=== PATIENT | male | born 1960 | race Caucasian/White ===

== ENCOUNTER 2020-05-25 08:28 | Outpatient (CLI) | payer OTHER, SELFPAY ==
--- NOTE | ~2020-05-25 | XR_ITS ---
XR lumbar spine 2-3V DATE: 05/25/2020 08:56 INDICATION: Chronic low back pain. Surgery one year ago. TECHNIQUE: AP, lateral, coned lateral lumbosacral views COMPARISON: None FINDINGS: There is normal alignment of the lumbar spine. There is severe degenerative disease at T11-12. There is multi-level degenerative disc disease, most pronounced at L5-S1, moderate at the remaining L 2-3 through L4-5 interspaces. There is grade 1 anterolisthesis at L3-4. No fracture or bone destruction is evident. The lumbar and included lower thoracic pedicles are intac t. The sacroiliac joints are normal. IMPRESSION: Multilevel degenerative disc disease, most pronounced at T11-12 and L5-S1 Grade 1 anterolisthesis at L3-4 Reviewed, dictated and finalized at location A.
[2020-05-25 08:46] LABS: Hematocrit 45.3 % (40.0-54.0); Hemoglobin 14.5 g/dL (14.0-18.0); Mean Corpuscular Hemoglobin 29.4 pg (27.0-31.0); Mean Corpuscular Volume 91.9 fL (78.0-102.0); Mean Platelet Volume 9.8 fl (8.7-11.0); Platelet Count Result 198 K/mm3 (150-420); Red Blood Count 4.93 M/mm3 (4.70-6.10); Red Cell Distribution Width 12.6 % (11.6-14.4); White Blood Count 8.6 K/mm3 (4.8-10.8)
[2020-05-25 09:17] LABS: BNP < 5.0 pg/mL (0-100)
[2020-05-25 09:43] LABS: Alanine Aminotransferase 48 U/L (16-63); Albumin Level 4.2 g/dL (3.4-5.0); Alkaline Phosphatase 52 U/L (46-116); Anion Gap 10.6 mmol/L (7-16); Aspartate Amino Transferase 37 U/L (15-37); Bilirubin,Total 0.5 mg/dL (0.00-1.00); Blood Urea Nitrogen 14 mg/dL (7-18); Calcium 8.7 mg/dL (8.5-10.1); Carbon Dioxide 29 mmol/L (21-32); Chloride 102 mmol/L (98-108); Cholesterol 136 mg/dL (0-200); Estimated Glomerular Filt Rate > 60; Glucose 142 mg/dL (70-99); HDL Direct 28 mg/dL (40-60); LDL Cholesterol Calculated 51 mg/dL (<130); Magnesium 1.7 mg/dL (1.8-2.4); Osmolality Calculated 286 mOsm/kg (285-295); Potassium 4.6 mmol/L (3.5-5.1); Sodium 137 mmol/L (136-145); Total Protein 6.7 g/dL (6.4-8.2); Triglycerides 286 mg/dL (0-150)
[2020-05-26 07:38] LABS: Hemoglobin A1C 7.3 % (<5.7)
== END 2020-05-25 08:29 | disposition home or self-care (01) ==
PROVIDERS: PCP Family Medicine; Visit Provider Family Medicine
DX: I10 Essential (primary) hypertension (principal)
CPT/HCPCS: 36415; 72100; 80053; 80061; 83036; 83735; 83880; 85027

== ENCOUNTER 2020-05-30 09:41 | Outpatient (CLI) | payer OTHER, SELFPAY ==
--- NOTE | ~2020-05-30 | MR_ITS ---
EXAMINATION: MR lumbar spine wo con DATE: 05/30/2020 10:26 INDICATION: Low back pain. TECHNIQUE: Magnetic resonance imaging (MRI) of the lumbar spine was performed without intravenous con trast. Sequences included sagittal T2-weighted FSE, sagittal T2-weighted FS FSE, sagittal T1-weighted FSE, and axial T2-weighted FSE. COMPARISON: Lumbar spine MRI 06/17/2017 FINDINGS: There is 3 mm anterolisthesis of L2 on L3, L3 on L4, and L4 on L5. Vertebral body heights a re normal. There is moderately decreased disc height from L2-L3 through L4-L5 and severely decreased disc height at L5-S1. The distal spinal cord signal intensity is normal. The conus medullaris is at L 1. The following disc levels are specifically discussed: L1-L2: The disc does not extend beyond the endplate margin. There is no facet joint osteoarthritis. T here is no neural foraminal stenosis. There is no central canal stenosis. L2-L3: The disc is bulging. There is severe bilateral facet joint osteoarthritis. There is mild bilat eral neural foraminal stenosis. There is mild central canal stenosis. L3-L4: The disc is bulging. There is severe bilateral facet joint osteoarthritis. There is moderate b ilateral neural foraminal stenosis. There is moderate central canal stenosis. L4-L5: The disc is bulging. There is severe bilateral facet joint osteoarthritis. There is moderate b ilateral neural foraminal stenosis. There is mild central canal stenosis. L5-S1: The disc is bulging and has an annular fissure. There is severe bilateral facet joint osteoart hritis. There is moderate bilateral neural foraminal stenosis. There is mild central canal stenosis. IMPRESSION: 1. Severe lumbar spondylosis, worsened from 06/17/2017. Reviewed, dictated and finalized at location A.
== END 2020-05-30 09:42 | disposition home or self-care (01) ==
LOC: CHSIMG 09:43
PROVIDERS: PCP Family Medicine; Visit Provider Family Medicine
DX: M54.5 Low back pain (principal)
CPT/HCPCS: 72148

== ENCOUNTER 2020-06-01 15:26 | Outpatient (RCR) | payer OTHER, SELFPAY ==
--- NOTE | 2020-06-01 16:27 | PTOPEVAL ---
Thank you for referring Jamison Orona to [facility]. Please review, sign, date and return this plan of care ABEBE. I agree with and certify that the following plan of care is medically necessary. Referring Physician Date Admitting Provider: Attending Provider: Goyo Ha DO Referring Provider: *PT Outpatient Evaluation Start: 06/01/20 15:44 Freq: Status: Active Protocol: Document 06/01/20 15:44 SHARAN (Rec: 06/01/20 16:20 SHARAN [id number]) Therapy Assessment Status Assessment Status Assessment Status Evaluation Evaluation Information Problem Diagnosis low back pain Onset 04/01/20 Additional Evaluation Detail Oswestry=44% disabiltiy Subjective Information Pt. reports that he has long Query Text:As Reported By Patient/ standing hx of back pain. He Family had recent MRI that revealed severe arthritis in the back. He reports he has constant tightness in the back. He reports that he cannot feel the left leg at all and states that the left l.e. gives often. He reports having pain in the right l.e. as well. 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 He states that the left toes with curl with activity. He reports that his balance is getting worse and recalls recent falls due to the legs giving out. He reports that his goal is Diagnostic Tests X-Rays For This Problem Yes MRI For This Problem Yes Pain Assessment Pain Scale Pain Scale Used Numeric (1 - 10) Self Report Pain Assessment Lower Back Reported Pain Level 5 Lowest Pain Intensity 5 Greatest Pain Intensity 8 Pain Score Pain Score 5: Self Report Cervical and Lumbar ROM Lumbar ROM Lumbar Flexion Active Ankle Query Text:Hands to: Lumbar Extension (0-40) 10 Query Text:Active in Degrees Cervical and Lumbar Muscle Testing Lumbar Strength Upper Abdominal Strength 4-Good- Lower Abdominal Strength 3-Fair- Lower Back Extension 2+Poor+ Lower Extremity Muscle Strength Testing General Lower Extremity Strength Gross Lower Extremity Stre
== END 2020-06-29 09:44 | disposition home or self-care (01) ==
LOC: CHSPT 15:26
PROVIDERS: PCP Family Medicine; Visit Provider Family Medicine
DX: M54.5 Low back pain (principal)
CPT/HCPCS: 97014; 97110; 97161; G0283

== ENCOUNTER 2021-01-03 12:12 | Emergency (ER) | payer OTHER, SELFPAY ==
[2021-01-03 12:28] VITALS: BP 167/91; PULSE 75; RESP 20; TEMP 36.4; O2SAT 95
[2021-01-03] MEDS: PENICILLIN G BENZATHINE 1,200,000 UNITS/2 ML SYRINGE 1200000 UNITS IM (12:41)
--- NOTE | 2021-01-03 12:52 | ED.DENTAL ---
HPI - Dental/Oral General Chief complaint: Dental/Oral Stated complaint: tooth pain Time Seen by Provider: 01/03/21 12:35 Source: patient Mode of arrival: ambulatory Limitations: no limitations History of Present Illness HPI Narrative: Patient states he got a part of a popcorn kernel stuck under his gum, and the gum and surrounding area, where it went in by the tooth have been really tender. This happened a few days ago. He comes in because tooth number 22 appears to have an abscess around it, and says it is very tender to touch. It has also made that part of his face swollen. He comes in because this has seemed to be getting worse at home. Pain is moderately severe, dull, ongoing, not relieved by him caring for the tooth at home. Onset (ago): day(s) Duration: constant Severity: moderate Relieving factors: nothing Related Data Home Medications Medication Instructions Recorded Confirmed losartan 50 mg PO DAILY 01/03/21 01/03/21 omeprazole 20 mg PO DAILY 01/03/21 01/03/21 rosuvastatin 20 mg PO DAILY 01/03/21 01/03/21 Allergies Allergy/AdvReac Type Severity Reaction Status Date / Time temazepam [Restoril] Allergy Intermediate Sleepiness Verified 03/02/20 13:06 Hydrocodone/Acetaminophen Allergy Intermediate Uncoded 03/02/20 13:06 Review of Systems Constitutional: Constitutional: Reports no additional constitutional complaints Eyes: Eyes: Reports no additional eye complaints ENT: Reports system reviewed and no additional complaints, except as documented Cardiovascular: Cardiovascular: Reports no additional cardiovascular complaints Respiratory: Respiratory: Reports no additional respiratory complaints Gastrointestinal: Gastrointestinal: Reports no additional gastrointestinal complaints Genitourinary: Genitourinary: Reports no additional male genitourinary complaints Musculoskeletal: Musculoskeletal: Reports no additional musculoskeletal complaints Integumentary/Breasts: Skin/Breast: Reports system reviewed and no additional complaints, except as docu Neurologic: Reports system reviewed and no additional complaints, except as documented Psychiatric: Psychiatric: Reports no additional psychiatric complaints Endocrine: Endocrine: Reports no additional endocrine complaints Hematologic/Lymphatic: Hematologic/Lymphatic: Reports no additional hematologic/lymphatic complaints Allergic/Immunologic: Allergic/Immunologic: Reports no additional allergic/immunologic complaints PMFSH Past Medical History Medical History GERD (gastroesophageal reflux disease) Hyperlipidemia Hypertension CHADD (obstructive sleep apnea) Overweight Surgical History Surgical History History of back surgery Hx of cataract surgery Social History Social History (Updated 01/03/21 @ 14:14 by Sterling Dias MD) Smoking status: Never smoker Alcohol use details: minimal alcohol use, social Gender identity (if verbalized by the patient): Male Exam Const: General: no acute distress Orientation/consciousness: patient oriented x3 HENMT: Head: normal to inspection (lower jaw on lower left with some mild sweling) General nose exam: Normal external nose present Throat: posterior oropharynx normal Other: Tooth #22 appears to be abscessed. The area of gum around this is also inflamed. Eyes: Conjunctivae: conjunctivae normal Neck: Neck: normal visual inspection Chest: Chest palpation & inspection: normal inspection of the chest Resp: Effort & Inspection: normal respiratory effort Auscultation: clear to auscultation bilaterally Cardio: Rate: regular rate Rhythm: regular rhythm GI: Auscultation: normal bowel sounds Skin: General skin exam: normal color Neuro: General: patient oriented x3 and moves all extremities Extrem: General: normal to inspection Psych: Appearance: grossly normal Mental Status: mental sta
[2021-01-03 12:58] VITALS: BP 176/87; PULSE 70; RESP 20; TEMP 36.7; O2SAT 95
== END 2021-01-03 13:05 | disposition home or self-care (01) ==
PROVIDERS: Emergency Provider Emergency Medicine; PCP Family Medicine
DX: K04.7 Periapical abscess without sinus (principal)
CPT/HCPCS: 96372; 99283; J0561

== ENCOUNTER 2021-12-18 17:27 | Emergency (ER) | payer OTHER, SELFPAY ==
--- NOTE | ~2021-12-18 | XR_ITS ---
EXAMINATION: XR ankle RT 2V EXAM DATE: 12/18/2021 18:03 INDICATION: Painful ankle. Gout? TECHNIQUE: Frontal and lateral projections of the right ankle. There is no prior study for comparis on. FINDINGS: No right talar osteochondral defect or appreciable osteoarthritis. There is evidence of pr ior malleoli avulsion injuries. There is swelling mostly over the medial aspect of the ankle, nonspec ific. No findings specific for gout. There are no acute fractures identified. No radiopaque foreign b odies identified. IMPRESSION: 1. Evidence of prior malleolar avulsion injuries. 2. Soft tissue swelling. Reviewed, dictated and finalized at location G. CUTTER
[2021-12-18 17:46] VITALS: BP 189/98; PULSE 88; RESP 20; TEMP 36.6; O2SAT 96
--- NOTE | 2021-12-18 17:50 | ED.LOWEXIN ---
HPI - Extremity Injury (Lower) General Chief Complaint: Extremity Injury, Lower Stated Complaint: right ankle twisted/pain Time Seen by Provider: 12/18/21 17:50 Source: patient Mode of arrival: ambulatory Limitations: no limitations History of Present Illness HPI Narrative: this is a 71-year-old male with history of hyperlipidemia and hypertension, with a remote history of gout presents with a red swollen tender right medial ankle, patient did mention that he twisted his ankle approximately 4 days ago, and started having this warm swollen and tender right ankle. Otherwise there is no chest pain no shortness of breath no fever chills. complaint: ankle injury Onset (ago): day(s) Injury: Right: ankle ( red warm and tender) Type of Injury: inversion Place: home Severity: moderate Severity scale (1-10): 6 Relieving factors: nothing Exacerbating factors: nothing Related Data Allergies Allergy/AdvReac Type Severity Reaction Status Date / Time temazepam [Restoril] Allergy Intermediate Sleepiness Verified 03/02/20 13:06 Hydrocodone/Acetaminophen Allergy Intermediate Uncoded 03/02/20 13:06 Review of Systems Review of Systems: All systems reviewed & are unremarkable except as noted in HPI and below PMFSH Past Medical History Medical History (Updated 12/18/21 @ 17:54 by Sandoval Valladares MD) GERD (gastroesophageal reflux disease) Hyperlipidemia Hypertension CHADD (obstructive sleep apnea) Overweight Surgical History Surgical History History of back surgery Hx of cataract surgery Social History Social History Smoking status: Never smoker Alcohol use details: minimal alcohol use, social Gender identity (if verbalized by the patient): Male Exam Const: General: no acute distress Orientation/consciousness: patient oriented x3 HENMT: Head: normal to inspection and contusion Eyes: Conjunctivae: conjunctivae normal Pupils: Equal, round and reactive pupils present Neck: Neck: normal visual inspection, no lymphadenopathy and no meningeal signs Chest: Chest palpation & inspection: normal inspection of the chest Resp: Effort & Inspection: normal respiratory effort Auscultation: clear to auscultation bilaterally Cardio: Rate: regular rate Rhythm: regular rhythm GI: GI Palp: Yes Soft to palpation Back/Spine/Pelvis: Back: no CVA tenderness Skin: Other: Warm swollen and tender right ankle Extrem: Other: warm swollen tender right ankle Psych: Mental Status: mental status grossly normal Affect: normal affect Course Course Emergency Course: patient received Toradol IM 60mg, x-ray was performed reviewed with patient. Critical Care Time Critical Care Time Critical Care Time: No Discharge Plan Discharge Clinical Impression: Gout attack Qualifiers: Gout site: ankle Gout etiology: unspecified cause Laterality: right Qualified Code(s): M10.9 - Gout, unspecified Patient Disposition: Home, Self-Care Condition: Stable Instructions: Antibiotic Form, Gout (ED) Additional Instructions: Take medicine as prescribed and follow-up with primary care physician symptoms persist or worsen. Prescriptions: New indomethacin 50 mg capsule 50 mg PO TID Qty: 20 RF: 0 No Action losartan 50 mg tablet See Rx Instructions .ROUTE .COMPLEX Qty: 90 RF: 2 rosuvastatin 20 mg tablet See Rx Instructions .ROUTE .COMPLEX Qty: 90 RF: 2 amoxicillin 500 mg capsule 500 mg PO Q6H Qty: 40 RF: 0 omeprazole 20 mg capsule,delayed release(DR/EC) See Rx Instructions .ROUTE .COMPLEX Qty: 30 RF: 0 Follow-up/Referrals: Goyo Ha DO [Primary Care Provider] - Time of Disposition: 18:27
[2021-12-18] MEDS: KETOROLAC (*BKC) 60 MG/2 ML VIAL IM (17:58)
[2021-12-18 18:42] VITALS: BP 176/100; PULSE 86; RESP 20; TEMP 36.7; O2SAT 96
== END 2021-12-18 18:40 | disposition home or self-care (01) ==
PROVIDERS: Emergency Provider Emergency Medicine; PCP Family Medicine
DX: M10.9 Gout, unspecified (principal)
CPT/HCPCS: 73600; 96372; 99283; J1885

== ENCOUNTER 2022-01-25 07:43 | Outpatient (RCR) | payer OTHER, SELFPAY ==
--- NOTE | 2022-01-25 07:59 | PTOPEVAL ---
Thank you for referring Jamison Orona to [facility].? The patient is scheduled to be seen for therapy? ____x/week for ___ weeks. Please review, sign, date and return this plan of care ABEBE. I agree with and certify that the following plan of care is medically necessary. Referring Physician Date Admitting Provider: Attending Provider: SORAIDA BUENROSTRO Referring Provider: *PT Outpatient Evaluation Start: 01/25/22 07:03 Freq: Status: Active Protocol: Document 01/25/22 07:00 Cecy (Rec: 01/25/22 07:54 [id number] Therapy Assessment Status Assessment Status Assessment Status Evaluation Outpatient Past Medical History Cardiovascular History Hx Hypercholesterolemia Yes Hx Hypertension Yes Gastrointestinal History Hx Gastroesophageal Reflux Disease Yes Musculoskeletal History Hx Gout Yes Endocrine History Hx Diabetes Yes: A1C 6 Evaluation Information Problem Diagnosis lumbar spondylolysis Onset 01/07/22 Additional Evaluation Detail oswestry = 70% functionally declined Subjective Information patient reports he went to see Query Text:As Reported By Patient/ his primary care who reffered Family him to pain [facility]. he reports he has gone through pain management several times already. he reports he has tried PT in the past. he reports he did get worse last time with therapy. he reports his new med seems to take the edge off his pain a bit. he reports he has constatnt cramping in the legs, pain in the back and legs. he reports he is loosing strength and mm tone in the L greater than the R LE. he reports he had a shot in the back last monday. he reports he has worsening symptoms with standing, lifting, transfers, standing for more than 30 minutes. he reports he is unable to get into a comfortable position in any position. patient reports pain in the feet at all times. 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
--- NOTE | 2022-02-22 07:56 | PTOPEVAL ---
Thank you for referring Jamison Orona to [facility].? The patient is scheduled to be seen for therapy? ____x/week for ___ weeks. Please review, sign, date and return this plan of care ABEBE. I agree with and certify that the following plan of care is medically necessary. Referring Physician Date Admitting Provider: Attending Provider: SORAIDA AWAD Referring Provider: STEPHANIE Outpatient Evaluation Start: 01/25/22 07:03 Freq: Status: Active Protocol: Document 02/22/22 07:01 [facility] (Rec: 02/22/22 07:55 [facility] [id number]) Outpatient Past Medical History Cardiovascular History Hx Hypercholesterolemia Yes Hx Hypertension Yes Gastrointestinal History Hx Gastroesophageal Reflux Disease Yes Musculoskeletal History Hx Gout Yes Endocrine History Hx Diabetes Yes: A1C 6 Evaluation Information Problem Diagnosis lumbar spondylolysis Onset 01/07/22 Additional Evaluation Detail oswestry = 44% functionally declined Subjective Information patient reports he feels Query Text:As Reported By Patient/ Alright this date. he reports Family continued baseline pain a 5-6 /10, and bouts up to a 9/10. however, he reports since beginning his new meds this has stayed much lower and his tingling and burning is less in the bilateral LE's. Pain Assessment Timing of Pain Assessment Timing of Pain Assessment Assessment Pain Scale Pain Scale Used Numeric (1 - 10) Self Report Pain Assessment Lower Back Reported Pain Level 6 Greatest Pain Intensity 9 Pain Score Pain Score 6: Self Report Interventions Used Interventions Used By Clinicians Activity or ADL's,Education, Exercise,Heat,Medication,Rest Cervical and Lumbar ROM Lumbar ROM Lumbar Flexion Active Mid Awad,Ankle Query Text:Hands to: Lumbar Extension (0-40) 20 Query Text:Active in Degrees Lumbar Lateral Flexion Right (0-40) 30 Query Text:Active in Degrees Lumbar Lateral Flexion Left (0-40) 30 Query Text:Active in Degrees Lumbar Comments increased pain with arom lumbar mobility to all ends. gowers sign with returning to standing from forward flexion. Lower Extremity Muscle Strength Testing Hip Strength Left Hip Flexion Strength 4+ Good + Hip Extension Strength 4 Good Hip Abduction Strength 4+ Good + Right Hip Flexion Str
== END 2022-02-22 17:00 | disposition home or self-care (01) ==
LOC: CHSPT 07:43
DX: M43.06 Spondylolysis, lumbar region (principal)
CPT/HCPCS: 97014; 97110; 97140; 97162; 97530; G0283

== ENCOUNTER 2022-03-23 12:34 | Outpatient (CLI) | payer OTHER, SELFPAY ==
--- NOTE | ~2022-03-23 | XR_ITS ---
XR knee RT 3V DATE: 03/23/2022 13:14 INDICATION: Polyarthritis. Right knee pain. TECHNIQUE: 3 views COMPARISON: None FINDINGS: There is mild periarticular spurring of the patella consistent with osteoarthritis. Medial and lateral compartments joint spaces appear relatively well preserved. No fracture or dislocation or joint effusion. No periosteal reaction or bone destruction. No radiopaq ue intra-articular loose body or chondral calcinosis. IMPRESSION: Mild patellofemoral osteoarthritis Reviewed, dictated and finalized at location B.
--- NOTE | ~2022-03-23 | XR_ITS ---
XR knee LT 3V DATE: 03/23/2022 13:14 INDICATION: Left knee pain TECHNIQUE: 3 views COMPARISON: 03/09/2007 left knee FINDINGS: There is particular spurring at the patellofemoral joint consistent with osteoarthritis. Medial and lateral compartment joint spaces are well preserved. There is minimal periarticular spurri ng at the lateral compartment. No radiopaque interarticular loose body or chondrocalcinosis is eviden t. No fracture or dislocation or joint effusion. No periosteal reaction or bone destruction. IMPRESSION: Mild osteoarthritis Reviewed, dictated and finalized at location B. IMPRESSION: Mild osteoarthritis
--- NOTE | ~2022-03-23 | XR_ITS ---
XR hip BI 2V w AP pelvis DATE: 03/23/2022 13:14 INDICATION: Bilateral hip pain TECHNIQUE: AP pelvis. AP and lateral views of each hip. COMPARISON: None FINDINGS: Degenerative disc disease at L5-S1. The pubic symphysis and sacroiliac joints are intact. No fracture or bone destruction of the pelvis. Mild bilateral hip osteoarthritis. No fracture, dislocation, avascular necrosis or bone destruction o f either hip is evident. IMPRESSION: Mild bilateral hip osteoid arthritis Degenerative disc disease at L5-S1 Reviewed, dictated and finalized at location B.
== END 2022-03-23 12:35 | disposition home or self-care (01) ==
LOC: CHSIMG 12:39
PROVIDERS: PCP Family Medicine; Visit Provider Family Medicine
DX: M13.0 Polyarthritis, unspecified (principal)
CPT/HCPCS: 73521; 73562

== ENCOUNTER 2022-11-02 07:22 | Outpatient (CLI) | payer OTHER, SELFPAY ==
[2022-11-02 07:36] LABS: Hematocrit 42.2 % (40.0-54.0); Hemoglobin 14.6 g/dL (14.0-18.0); Mean Corpuscular HGB Conc 34.6 g/dL (32.0-36.0); Mean Corpuscular Hemoglobin 30.5 pg (27.0-31.0); Mean Corpuscular Volume 88.1 fL (78.0-102.0); Mean Platelet Volume 9.7 fl (8.7-11.0); Platelet Count Result 245 K/mm3 (150-420); Red Blood Count 4.79 M/mm3 (4.70-6.10); Red Cell Distribution Width 12.5 % (11.6-14.4); White Blood Count 8.7 K/mm3 (4.8-10.8)
[2022-11-02 07:45] LABS: Hemoglobin A1C 7.4 % (<5.7)
[2022-11-02 08:22] LABS: Albumin Level 4.1 g/dL (3.4-5.0); Alkaline Phosphatase 71 U/L (46-116); Anion Gap 8 mmol/L (8-16); Aspartate Amino Transferase 43 U/L (15-37); Bilirubin,Total 0.3 mg/dL (0.00-1.00); Blood Urea Nitrogen 17 mg/dL (7-18); Calcium 8.7 mg/dL (8.5-10.1); Carbon Dioxide 28 mmol/L (21-32); Chloride 101 mmol/L (98-108); Cholesterol 205 mg/dL (0-200); Estimated Glomerular Filt Rate > 60; Glucose 144 mg/dL (70-99); HDL Direct 24 mg/dL (40-60); Osmolality Calculated 288 mOsm/kg (285-295); Potassium 4.6 mmol/L (3.5-5.1); Prostate Specific Antigen 1.9 ng/mL (< OR = 4.0); Sodium 137 mmol/L (136-145)
[2022-11-02 08:48] LABS: LDL Cholesterol Calculated 7 mg/dL (<130); Triglycerides 870 mg/dL (0-150)
[2022-11-02 08:49] LABS: Alanine Aminotransferase 49 U/L (16-63); LDL Cholesterol Direct 104 mg/dL (0-130)
== END 2022-11-02 07:23 | disposition home or self-care (01) ==
LOC: CHSLAB 07:26
PROVIDERS: PCP Family Medicine; Visit Provider Family Medicine
DX: E11.9 Type 2 diabetes mellitus without complications (principal); R35.1 Nocturia; E78.5 Hyperlipidemia, unspecified; I10 Essential (primary) hypertension
CPT/HCPCS: 36415; 80053; 80061; 83036; 83721; 84153; 84443; 85027; G0103

== ENCOUNTER 2022-11-03 07:10 | Outpatient (CLI) | payer OTHER, SELFPAY ==
--- NOTE | ~2022-11-03 | US_ITS ---
EXAMINATION: US retroperitoneal limited DATE: 11/03/2022 08:07 INDICATION: Nocturia Comparison:No prior studies for comparison. TECHNIQUE: Multiple transabdominal sonographic images of the pelvis performed. FINDINGS: The bladder wall is within normal limits without significant thickening or focal mass. Post void volume in the bladder is 346 cc. Prostate volume is 44 cc. Prostate measures 4.6 x 4.5 x 4.1 cm . IMPRESSION: 1. Large post void residual measuring 346 cc.. Reviewed, dictated and finalized at location A. 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
== END 2022-11-03 07:11 | disposition home or self-care (01) ==
LOC: CHSIMG 07:13
PROVIDERS: PCP Family Medicine; Visit Provider Family Medicine
DX: R35.1 Nocturia (principal)
CPT/HCPCS: 76775

== ENCOUNTER 2022-11-26 07:18 | Outpatient (CLI) | payer OTHER, SELFPAY ==
--- NOTE | ~2022-11-26 | MR_ITS ---
MRI of the brain and internal auditory canals Clinical History: Dizziness Technique: Axial and sagittal T1-weighted images were acquired. These were followed by axial T2-weigh yong, diffusion weighted, gradient, and FLAIR images. Thin cut coronal T1-weighted images and thin cut axial and coronal T2-weighted images were performed through the internal auditory canals. Findings: No acute infarct, intracranial hemorrhage, or mass lesion identified. Mild chronic white ma tter changes are noted in the periventricular white matter bilaterally. Ventricles and subarachnoid spaces are unremarkable. Orbits are unremarkable. Paranasal sinuses and m astoid air cells are clear. Major intracranial flow voids appear intact. Sagittal midline structures are intact. No abnormal mass lesion seen at the internal auditory canals or cerebellopontine angle regions. IMPRESSION: No abnormality seen at the internal auditory canals or cerebellopontine angle regions. Consider postc ontrast examination to better evaluate for small acoustic neuroma or other mass lesion. Mild chronic white matter changes, as noted above. Reviewed, dictated and finalized at location M. ULAR TANK COOPER IMPRESSION: No abnormality seen at the internal auditory canals or cerebellopontine angle r egions. Consider postcontrast examination to better evaluate for small acoustic neuroma or other mass lesion. Mild chronic white matter changes, as noted above.
== END 2022-11-26 07:19 | disposition home or self-care (01) ==
LOC: CHSIMG 07:18
PROVIDERS: PCP Family Medicine; Visit Provider Family Medicine
DX: R42 Dizziness and giddiness (principal)
CPT/HCPCS: 70551

== ENCOUNTER 2023-02-18 07:19 | Outpatient (CLI) | payer OTHER, SELFPAY ==
--- NOTE | ~2023-02-18 | MR_ITS ---
MRI of the lumbar spine Clinical History: Back pain Technique: Axial T2-weighted images, and sagittal T1-weighted, T2-weighted, and T2 fat-sat images wer e acquired. Following intravenous administration of 10 cc MultiHance gadolinium, T1-weighted fat-sat imaging was performed in the axial and sagittal planes. COMPARISON: 05/30/2020 Findings: No fracture identified. Minimal grade 1 anterolisthesis of L3 over L4 noted. No suspicious bone marrow signal abnormality seen. At L1-L2, there is no disc bulge or herniation. No spinal canal stenosis or neural foraminal narrowin g. At L2-L3, there is degenerative disc disease. Disc bulge and facet arthropathy result in severe theca l sac compression/spinal canal stenosis. There is moderate bilateral neural foraminal narrowing. At L3-L4, disc bulge and facet arthropathy result in severe spinal canal stenosis/thecal sac compress ion. There is moderate right neural foraminal narrowing and mild left neural foraminal narrowing. At L4-L5, disc bulge and facet arthropathy result in minimal central canal stenosis. There is mild to moderate bilateral neural foraminal narrowing. At L5-S1, there is diffuse disc bulge with facet arthropathy. There is bilateral lateral recess steno sis, right worse than left. There is severe bilateral neural foraminal narrowing. Paravertebral soft tissues are unremarkable. No suspicious postcontrast enhancement identified. Impression: Severe degenerative spondylosis at L2-L3 and L3-L4, as detailed above, with severe thecal sac leland ceferino and bilateral neural foraminal narrowing. Severe bilateral neural foraminal narrowing and lateral recess stenosis bilaterally at L5-S1, as deta iled above. Additional degenerative changes, as above. Reviewed, dictated and finalized at [facility] M. Impression: Severe degenerative spondylosis at L2-L3 and L3-L4, as detailed above, with sev ere thecal sac compression and bilateral neural foraminal narrowing. Severe bilateral neural foraminal narrowing and lateral recess stenosis bilater ally at L5-S1, as detailed above. Additional degenerative changes, as above.
[2023-02-18 07:41] LABS: Estimated Glomerular Filt Rate > 60
== END 2023-02-18 07:20 | disposition home or self-care (01) ==
LOC: CHSIMG 07:20
PROVIDERS: PCP Family Medicine; Visit Provider Neurological Surgery
DX: M48.061 Spinal stenosis, lumbar region without neurogenic claudication (principal); M43.06 Spondylolysis, lumbar region
CPT/HCPCS: 72158; A9577

== ENCOUNTER 2023-02-20 07:30 | Outpatient (CLI) | payer OTHER, SELFPAY ==
--- NOTE | ~2023-02-20 | CT_ITS ---
EXAMINATION: CT lumbar spine wo con DATE: 02/20/2023 08:06 INDICATION: Chronic low back pain. TECHNIQUE: Computed tomography (CT) of the lumbar spine was performed without intravenous contrast. A utomated exposure control and iterative reconstruction technique were employed. The dose-length produ ct was 1329.96 mGy-cm. COMPARISON: Lumbar spine MRI 02/18/2023 FINDINGS: There is 3 mm anterolisthesis of L3 on L4. There is mild chronic anterior wedging of T11 an d T12 vertebral bodies. There is severely decreased disc height at T10-T11, T11-T12, and L2-L3, moder ately decreased disc height at L3-L4 and L4-L5, and severely decreased disc height at L5-S1 with endp late remodeling. The following disc levels are specifically discussed: T11-T12: The disc is bulging. There is severe bilateral facet joint osteoarthritis. There is mild aidan ateral neural foraminal stenosis. There is mild central canal stenosis. T12-L1: The disc does not extend beyond the endplate margin. There is mild bilateral facet joint oste oarthritis. There is no neural foraminal stenosis. There is no central canal stenosis. L1-L2: The disc does not extend beyond the endplate margin. There is mild bilateral facet joint osteo arthritis. There is no neural foraminal stenosis. There is no central canal stenosis. L2-L3: The disc is bulging. There is severe bilateral facet joint osteoarthritis. There is moderate b ilateral neural foraminal stenosis. There is mild central canal stenosis. L3-L4: The disc is bulging. There is severe bilateral facet joint osteoarthritis. There is moderate b ilateral neural foraminal stenosis. There is moderate central canal stenosis. L4-L5: The disc is bulging. There is severe bilateral facet joint osteoarthritis. There is moderate b ilateral neural foraminal stenosis. There is mild central canal stenosis. L5-S1: The disc is bulging. There is severe bilateral facet joint osteoarthritis. There is severe rig ht and moderate left neural foraminal stenosis. There is mild central canal stenosis. IMPRESSION: 1. Severe lumbar spondylosis. Reviewed, dictated and finalized at location A.
--- NOTE | ~2023-02-20 | XR_ITS ---
XR lumbar spine min 4V 02/20/2023 08:02 Indication: Chronic low back pain with pain extending to the lower extremities Procedure: 4 views of the lumbar spine Comparison: 05/27/2015 Findings: There is chronic disc narrowing at L2-3 through L5-S1 with progression at L4-5. Vertebral b rosemary heights are maintained. There is levoscoliosis. There is grade 1 degenerative spondylolisthesis a t L3-4 and L4-5. There is multilevel facet hypertrophy. No significant alteration of alignment with f lexion and extension. There is atherosclerosis. Sacral foramen are symmetric. Impression: 1: Severe lumbar spondylosis with progression since prior examination. Reviewed, dictated and finalized at location B. Impression: 1: Severe lumbar spondylosis with progression since prior examination.
== END 2023-02-20 07:31 | disposition home or self-care (01) ==
PROVIDERS: PCP Family Medicine; Visit Provider Neurological Surgery
DX: M48.061 Spinal stenosis, lumbar region without neurogenic claudication (principal); M43.06 Spondylolysis, lumbar region
CPT/HCPCS: 72110; 72131

== ENCOUNTER 2023-07-07 06:10 | Outpatient (CLI) | payer OTHER, SELFPAY ==
[2023-07-07 06:38] LABS: Hematocrit 45.7 % (40.0-54.0); Hemoglobin 15.3 g/dL (14.0-18.0); Mean Corpuscular HGB Conc 33.5 g/dL (32.0-36.0); Mean Corpuscular Hemoglobin 29.4 pg (27.0-31.0); Mean Corpuscular Volume 87.7 fL (78.0-102.0); Mean Platelet Volume 9.8 fl (8.7-11.0); Platelet Count Result 233 K/mm3 (150-420); Red Blood Count 5.21 M/mm3 (4.70-6.10); Red Cell Distribution Width 12.6 % (11.6-14.4); White Blood Count 8.1 K/mm3 (4.8-10.8)
[2023-07-07 06:43] LABS: Appearance Urine Clear (Clear); Bilirubin Urine Negative (Negative); Blood Urine Negative (Negative); Color Urine Light Yellow (Yellow); Glucose Urine UA 3+ (Negative); Ketones Urine Negative (Negative); Leukocyte Esterase Ur Negative LEU/UL (Negative); Nitrate Urine Negative (Negative); Protein Urine Negative (Negative); Urobilinogen Urine 0.2 mg/dL (0.2-1.0)
[2023-07-07 06:46] LABS: Hemoglobin A1C 6.7 % (<5.7)
[2023-07-07 06:47] LABS: Add Urine Microscopic? YES; Bacteria Urine None seen /hpf; RBC Urine None seen /hpf (0-2); WBC Urine None seen /hpf (0-3)
[2023-07-07 06:54] LABS: Partial Thromboplastin Time 32.5 SEC (23.90-30.70); Prothrombin Time 10.9 Seconds (9.50-12.10)
[2023-07-07 07:09] LABS: Anion Gap 8 mmol/L (8-16); Blood Urea Nitrogen 16 mg/dL (7-18); Calcium 9.2 mg/dL (8.5-10.1); Carbon Dioxide 27 mmol/L (21-32); Chloride 103 mmol/L (98-108); Estimated Glomerular Filt Rate > 60; Glucose 122 mg/dL (70-99); Osmolality Calculated 288 mOsm/kg (285-295); Potassium 4.3 mmol/L (3.5-5.1); Sodium 138 mmol/L (136-145)
--- NOTE | 2023-07-07 07:11 | ECG_ITS ---
Measurements Intervals Rankin Rate: 66 P: 36 MT: 196 QRS: 19 QRSD: 117 T: 20 QT: 400 QTc: 420 Interpretive Statements SINUS RHYTHM INCOMPLETE RIGHT BUNDLE BRANCH BLOCK [90+ ms QRS DURATION, TERMINAL R IN V1/V2, 40+ ms S IN I/aVL/V4/V5/V6] BORDERLINE ECG NO PREVIOUS ECG AVAILABLE FOR COMPARISON Electronically Signed On 07-07-2023 14:36:56 CDT by Sandoval Blackmon M.D.
== END 2023-07-07 06:11 | disposition home or self-care (01) ==
LOC: CHSLAB 06:13
PROVIDERS: PCP Family Medicine; Visit Provider Neurological Surgery
DX: Z01.818 Encounter for other preprocedural examination (principal); I10 Essential (primary) hypertension; E11.9 Type 2 diabetes mellitus without complications; M48.061 Spinal stenosis, lumbar region without neurogenic claudication; I45.19 Other right bundle-branch block
CPT/HCPCS: 36415; 80048; 81001; 83036; 85027; 85610; 85730; 93005

== ENCOUNTER 2023-07-11 02:01 | Day surgery (SDC) | payer OTHER, SELFPAY ==
[2023-07-06 14:34] VITALS: BMI 35.5
--- NOTE | 2023-07-06 14:42 | PC.NURSE ---
Report to the Outpatient Waiting Room, entrance under the green pavilion located off [facility], at time 0930 on date 07/11/23. Planned Procedure Time: 1130. Time changes happen often and if your time is changed the preop area will call you the afternoon before. - You and your visitor will be asked to self-screen and do not enter if you have any COVID symptoms. - A mask is optional within the hospital at this time. Patients may have clear liquids (water, carbonated beverages, clear teas, apple juice) until 3 hours prior to surgery with a maximum of 20 ounces. - No food from midnight until time of surgery Take the following medications with a SIP of water the morning of surgery: PREGABALIN DO NOT STOP ANY OF YOUR OTHER PRESCRIPTION MEDICATIONS PRIOR TO SURGERY ?EXCEPT THE FOLLOWING Medications to discontinue per physician: IBUPROFEN Date to take last dose: NO MORE UNTIL AFTER SURGERY Please no make-up, nail upper sorbian, hairspray, perfume, deodorant, or body powder the day of surgery. No jewelry (including any body piercings) or valuables the day of surgery, leave them at home. Please take a shower or bath the night before, or the morning of, surgery with an antibacterial soap. Wear comfortable, loose fitting clothing. - Jewelry must be removed prior to entering the operating room. Rings and piercings that are not removed may be cut off. - The hospital will not accept responsibility for valuables. - Please leave all valuables, including medications, at home the day of surgery. If you are going home after surgery, a licensed spotter driver must drive you home. - NO public transportation without another adult if you receive anesthesia. - We recommend that an adult stay with you for 24 hours following discharge. - We also recommend that you do not drive, make important decision, drink alcoholic beverages, or take any drugs that were not prescribed by your health care provider for at least 24 hours after your discharge time. Follow any additional instructions given to you from your surgeon. If you or anyone in your household have experienced Covid symptoms in the past week, please notify your surgeon or the nurse liaison at the phone number below for possible testing. Telephone instructions given to PT - CLARITA MOONEY and asked if any additional questions and then verbalized understanding. Patient advised to call surgeon office or pre surgery nurse liaison [phone] if any additional questions.
[2023-07-11] VITALS (15 sets, daily range): BP systolic 119–161; BP diastolic 66–93; PULSE 67–103; RESP 10–23; TEMP 36.2–37.2; O2SAT 94–100
--- NOTE | ~2023-07-11 | XR_ITS ---
EXAMINATION: XR fluoroscopy no charge DATE: 07/11/2023 12:40 CDT INDICATION: LUMBAR DECOMPRESSION . TECHNIQUE: 2 fluoroscopic images of the lateral lumbar spine were obtained during lumbar decompressio n performed by the surgeon. I was not present in the operating room. Fluoroscopy exposure time was 12 .1 seconds. Air Kerma 11.726 mGy. DAP 0.23-4 mGym2. COMPARISON: CT lumbar spine 02/20/2023 FINDINGS: Initial image demonstrates surface localization directed towards L5. In the second image there are sk in retractors over the posterior soft tissues. A probe or other surgical instrument projects over the L3 posterior elements and is directed towards the L3-4 disc space, where there is a grade 1 anteroli sthesis. IMPRESSION: Fluoroscopic documentation of lumbar decompression. Please refer to the operative note for complete p rocedural details . Reviewed, dictated and finalized at location K. IMPRESSION: Fluoroscopic documentation of lumbar decompression. Please refer to the operati ve note for complete procedural details .
--- NOTE | 2023-07-11 09:43 | WPDANESEPPF ---
Anes - Initial Pre Proc Eval Procedure: Operation Date: 07/11/23 11:30 Proposed Procedures p Lumbar Decompression L2-L4 - Leanne Mckeon MD Date/Time: 07/11/23 09:43 Surgeon: Leanne Mckeon MD Pre Op Diagnosis: lumbar stenosis Patient Data Age: 63 Gender: M Height: 1.68 m Weight: 99.8 kg Allergies Allergy/AdvReac Type Severity Reaction Status Date / Time No Known Allergies Allergy Verified 07/11/23 09:43 Home Medications Medication Instructions Recorded Confirmed Type finasteride 5 mg tablet 5 mg PO DAILY #90 tabs 11/04/22 07/11/23 Rx omeprazole 20 mg capsule,delayed 20 mg PO DAILY #90 caps 11/28/22 07/11/23 Rx release tamsulosin 0.4 mg capsule 0.4 mg PO DAILY #90 caps 11/28/22 07/11/23 Rx lisinopril 20 See Rx Instructions .Route 02/03/23 07/11/23 Rx mg-hydrochlorothiazide 25 mg tablet .COMPLEX #90 tabs acetaminophen 500 mg tablet 1,000 mg PO QID PRN Pain 07/06/23 07/11/23 History empagliflozin 10 mg tablet 10 mg PO DAILY 07/06/23 07/11/23 History (Jardiance) ibuprofen 600 mg tablet 600 mg PO QID PRN Pain 07/06/23 07/11/23 History icosapent ethyl 1 gram capsule 2 g PO BID 07/06/23 07/11/23 History pregabalin 150 mg capsule 150 mg PO BID 07/06/23 07/11/23 History Patient hx anesthesia problems: none Family hx anesthesia problems: none Results Review: All pre-operative results and documents have been reviewed as part of the pre-operative evaluation. [facility] Past Medical History Medical History (Updated 07/11/23 @ 09:44 by Aries Eller DO) Diabetes type 2, controlled GERD (gastroesophageal reflux disease) Hyperlipidemia Hypertension Lumbar stenosis Nocturia CHADD (obstructive sleep apnea) does not use CPAP Overweight Surgical History Surgical History History of back surgery Hx of cataract surgery Social History Social History (Updated 04/07/23 @ 13:01 by Filomena Jennings MA) Social History: Jamison is somewhat confident filling out medical forms. In the last 12 months Jamison has not received any assistance from an organization or program. Smoking status: Never smoker Alcohol intake: current Drinks per week: 8 Alcohol use details: minimal alcohol use, social Substance use: never Substance use type: does not use Lack of Transportation: No Lack of Food: Sometimes True Current Housing: I Have Housing Concerned About Future Housing: No Difficulty Paying Gas/Electric Bills: No Difficulty Paying for Meds: YES Currently Unemployed: No Education: Associate Degree Difficulty w/ Childcare or Family Care: No Living arrangements: with family Gender identity (if verbalized by the patient): Male Spiritual care concerns: No Anes - Eval Final PreProcedure Day of Procedure 07/11/23 09:43 Patient weight: obese Heart: regular rate and rhythm Lungs: clear to auscultation Airway: Mallampati scale class II Neurological: alert and oriented Last oral intake: >/= 8 hours ASA classification: III Emergent: no Anesthetic plan: proceed Anesthesia type and monitoring: general ETT and standard monitoring Results Review: All pre-operative results and documents have been reviewed as part of the pre-operative evaluation. Informed Consent: The patient's anesthetic plan and its attendant risks and benefits were discussed with the patient/family/POA. Questions were solicited and answers provided to the satisfaction of the patient/family/POA.
[2023-07-11] MEDS: LACTATED RINGERS 1,000 ML 30 ML IV CONT ×2 (09:55→14:48)
[2023-07-11 10:11] LABS: Glucose Point of Care 127 mg/dl (65-105)
[2023-07-11 10:15] LABS: Partial Thromboplastin Time 36.9 SECONDS (22.3-36.8)
--- NOTE | 2023-07-11 10:40 | SUR.PREOP ---
1030-Jolene Colon RN food chemist aware of PTT results w/ranges. 1040-Jolene Colon RN food chemist called to report Dr. Mckeon aware of result and is okay.
--- NOTE | 2023-07-11 12:01 | PM.IMHP ---
H&P: HPI History of Present Illness Date/Time: 07/11/23 12:01 Chief Complaint: Jamison Orona ? Is a very pleasant 63-year-old man who originally presented and was seen on January 27, 2023 at the request of Dr. Ha? with a chief complaint of low back and left greater than right lower extremity pain.? The patient describes symptoms for at least several years but with a worsening over the past year.? He has a history of a prior lumbar decompression at L4-5, performed in 2017 at the [facility].? He has undergone MR imaging of the lumbar spine, but at the time of our initial visit, not since 2019.? An MRI from May 2020 did show moderate central stenosis at L3-4. The patient has followed with Pain Management at [facility].? He has had interventions including epidural steroid injection and medial branch blocks.? He states that he feels that his symptoms are worse now since these interventional procedures.? He has participated in physical therapy without relief of his pain.? He describes,? severe pain in the low back with radiation to the left lower extremity.? He describes pain in the posterior thigh to the morales in the foot.? He describes sensory change in a similar distribution.? His pain is worse with standing and walking any significant distance.? 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 He does find that bending forward helps with his symptoms.? The patient also states that he has weakness in his left calf, particularly his unable to perform an isolated calf raise on the left, and this has been present since mid 2021. The patient is increasingly frustrated by his pain. ? at our initial visit I recommended that we obtain updated imaging of the lumbar spine including CT, MRI, and plain x-rays.? The patient has got undergone an updated MRI of the lumbar spine that shows progression of spondylotic changes with severe spinal stenosis at L2-3 and L3-4.? There are slight spondylolisthesis? but no evidence of dynamic instability on plain x-rays.? CT of the lumbar spine shows no significant bony defect at L4-5 and? no evidence for prior decompression at L2-3 or L3-4. ? the patient is increasingly limited by his symptoms.? He has taken Lyrica which he occasionally takes when his pain is severe and it helps but he cannot tolerate daily medication because it makes him tired he states that he will have a subjective sense of weakness in the proximal left lower extremity particularly with activities such as bowling.? He is inclined to pursue surgical intervention PMFSH Past Medical History Medical History (Updated 07/11/23 @ 09:44 by Aries Eller DO) Diabetes type 2, controlled GERD (gastroesophageal reflux disease) Hyperlipidemia Hypertension Lumbar stenosis Nocturia CHADD (obstructive sleep apnea) does not use CPAP Overweight Surgical History Surgical History History of back surgery Hx of cataract surgery Social History Social History (Updated 04/07/23 @ 13:01 by Filomena Jennings MA) Social History: Jamison is somewhat confident filling out medical forms. In the last 12 months Jamison has not received any assistance from an organization or program. Smoking status: Never smoker Alcohol intake: current Drinks per week: 8 Alcohol use details: minimal alcohol use, social Substance use: never Substance use type: does not use Lack of Transportation: No Lack of Food: Sometimes True Current Housing: I Have Housing Concerned About Future Housing: No Difficulty Paying Gas/Electric Bills: No Difficulty Paying for Meds: YES Currently Unemployed: No Education: Associate Degree Difficulty w/ Childcare or Family Care: No Living arrangements: with family Gender identity (if verbalized by the patient): Male Spiritual care concerns: No Meds Home Medications and Al
--- NOTE | 2023-07-11 12:04 | WPDHPUPDATE1 ---
History and Physical Update Update Date/Time: 07/11/23 12:04 History and Physical has been reviewed, including an updated exam of the patient. There are NO changes in the patient's condition. Risks, benefits, and alternatives have been discussed and questions answered. Patient agrees to proceed with procedure.
[2023-07-11] MEDS: ceFAZolin 2 GM/D5W 50 ML 2 GM/50 ML BAG IVPB (12:28)
[2023-07-11] MEDS: LIDO 1%/EPINEPHRINE 1:100,000 50 ML VIAL INFILTRATE (13:04)
[2023-07-11] MEDS: BUPivacaine HCL 0.5% 10 ML AMP 20 ML INFILTRATE (14:25)
--- NOTE | 2023-07-11 14:31 | W.PM.PROC2 ---
Procedure Note - Detailed Date of Procedure 07/11/23 Pre-op Diagnosis lumbar stenosis Post-op Diagnosis Same Procedure Performed lumbar decompression L2-3 and L3-4 with removal of epidural lipomatosis L3-4 Surgeon Leanne Mckeon MD Anesthesia General Indications Jamison Orona is a very pleasant? 63 year old? male who presents at the request of Dr. Ha with claudicatory low back and left lower extremity pain and sensory change in the setting of lumbar stenosis at L2-3 and L3-4 adjacent to a prior lumbar decompression at L4-5 on imaging.? Isaak has tried treatments that include? formal physical therapy, animal care taker, and interventional measures in 2021.? The patient states that he feels that he has worse since it interventional procedures.? He does have the objective finding of left calf weakness on examination. In the office the most concerning symptom to the patient was? that he is unable to stand or walk any significant distance without severe limiting pain. The patient and I have had an extended discussion in the office? regarding the options for management of these clinical symptoms and radiographic findings. We have discussed the option of additional physical therapy or repeated interventional pain management strategies including SUBHA or ablative procedures. In this case we have more specifically discussed? that as the patient has not had lasting relief with these measures in the past, the likelihood that repeated attempts would offer a different result is small. Given the finding of progressive stenosis at L2-3 and L3-4 as well as the patient's claudicatory symptoms, we have discussed that it would be reasonable to consider surgical intervention, specifically lumbar decompression at L2-3 and L3-4.? I have discussed the indications as well as the risks of surgery including but not limited to bleeding, infection, CSF leak, numbness, weakness, paralysis, stroke, coma, even . We have discussed the fundamentals of the surgical procedure as well as the typical recovery from surgery. ? He expresses understanding and asks us to proceed with surgery.? He will stay overnight with likely d/c in am 07/12 Description of Procedure The patient was brought into the operating room where general anesthesia was induced.? Appropriate monitoring was obtained.? The patient was turned into a prone position on the Parrish table with a Foreign frame.? Extremities were padded.? The patient was secured with straps to the table.? Localization was performed using intraoperative fluoroscopy and the?L2-3 and L3-4 levels were identified. The patient's back was prepped and draped sterilely.? A surgical time out was performed.? The planned incision was infused with local anesthetic.? The incision was made using a #10 skin blade.? Hemostasis was achieved. Self retaining retractors were placed and advanced.? The?L2, L3 and L4? spinous process was identified and the muscle was dissected off of the spinous process and lamina of L2, L3 and L4 using bovie electrocautery.? Self retaining retractors were advanced.? A curette was placed under the L3 lamina and the L3-4 level was confirmed again using intraoperative fluoroscopy.?Using a Kellie rongeur the spinous processes were removed at L2, L3, and L4 Attention was first turned to the L2-3 level.?? The remaining spinous process of L2 was removed using a rongeur.? The lamina was drilled using a high speed kishore drill with a matchstick tip.? The lamina was drilled lateral to the level of the facet complex until, inferiorly, ligament was visible.? The lamina was thinned and then dissected from the lamina using a curette.? The remaining lamina and medial facet at L2-3 were removed with kerossen punches.? There was significant ligamentous hypertrophy as well as epidural lipomatosis that contriuted to severe central stenosis. The ligament was then carefully dissected away from the thecal sac and removed using kerossen punches.? The foramen at L2 an
[2023-07-11] MEDS: HYDROmorphone HCL INJ (*CRX) 1 MG/ML SYR 0.25 MG IV PUSH ×8 (14:49→15:49)
[2023-07-11] MEDS: fentaNYL CITRATE INJ (*CRX) 100 MCG/2 ML VIAL 25 MCG IV PUSH ×8 (15:10→15:44)
--- NOTE | 2023-07-11 16:40 | ADMGEN ---
This patient, Jamison Orona, was admitted to 2 Medical Room 240-. Patient/family oriented to hospital policies and general routines including ID bracelet, bed and alarms, visiting hours, pain management, procedures, bathroom and other care routines, personal items, smoking policy, room service/diet, and visiting hours. Information on how to activate the Rapid Response Team has been discussed. Patient/Family are encouraged to report perceived risks to care and to ask questions if they do not understand what they are told or what they should do.
[2023-07-11] MEDS: KCL 20 MEQ/D5/0.45% SOD CHL 1,000 ML 100 ML IV CONT (16:59)
[2023-07-11] MEDS: ONDANSETRON INJ 4 MG/2 ML VIAL IV PUSH (18:58)
[2023-07-11] MEDS: HYDROcodone/acetaminophen (*CRX) 10-325 MG TABLET 1 TAB PO (18:58)
[2023-07-11] MEDS: FINASTERIDE 5 MG TABLET PO (19:00)
[2023-07-11] MEDS: DOCUSATE SODIUM 100 MG CAPSULE PO (20:16)
[2023-07-11] MEDS: ceFAZolin 1 GM/NS 50 ML 1 GM/50 ML BAG IVPB (20:16)
[2023-07-11] MEDS: HYDROcodone/acetaminophen (*CRX) 5-325 MG TABLET 1 TAB PO (20:23)
[2023-07-11] MEDS: CYCLOBENZAPRINE HCL 10 MG TABLET PO (20:23)
[2023-07-12] MEDS: HYDROcodone/acetaminophen (*CRX) 10-325 MG TABLET 1 TAB PO ×4 (00:13→16:07)
[2023-07-12] MEDS: ceFAZolin 1 GM/NS 50 ML 1 GM/50 ML BAG IVPB (03:20)
[2023-07-12 03:30] VITALS: BP 119/70; PULSE 86; RESP 20; TEMP 36.7; O2SAT 94
--- NOTE | 2023-07-12 05:19 | PC.NURSE ---
Documentation for night 07/11 by Caesar Vidal reviewed by this nurse.
[2023-07-12 09:03] VITALS: BP 123/67; PULSE 91; RESP 18; TEMP 36.8; O2SAT 94
--- NOTE | 2023-07-12 09:04 | WPDNEUROSGPN ---
Progress Note: A&P Assessment and Plan (1) Status post lumbar laminectomy: Code(s): Z98.890 - Other specified postprocedural states Status: Acute Plan s/p L2-3, L3-4 laminectomies on 07/11 Plan: -Remove drain today -Ambulate in halls -Anticipate discharge home later today if ambulatory Subjective Date/time seen: 07/12/23 09:04 Interval history: Overall doing well with expected post-op pain in lower back. Has not noticed yet whether he has had improvement in leg pain, but he denies any leg pain currently. Voiding independently. Has an episode of emesis in PACU but otherwise tolerating PO. Review of Systems Review of Systems: All systems reviewed & are unremarkable except as noted in HPI and below Exam Narrative: AOx4 Full strength lower extremities Sensation slightly decreased to light touch in left distal medial leg Dressing dry HV 135cc out Objective Data Vital Signs Vital Signs: Vital Signs - 24 hr 07/11/23 09:22 07/11/23 14:48 07/11/23 15:00 Temperature 97.4 F L 98.3 F Pulse Rate 67 101 H 99 Respiratory Rate 20 23 H 17 Blood Pressure 136/83 156/88 H 119/66 Pulse Oximetry 99 98 98 Oxygen Delivery Room Air Simple Face Mask Simple Face Mask Oxygen Flow Rate 10 10 07/11/23 15:15 07/11/23 15:30 07/11/23 15:45 Temperature Pulse Rate 99 100 98 Respiratory Rate 14 12 15 Blood Pressure 161/87 H 155/93 H 158/88 H Pulse Oximetry 100 100 96 Oxygen Delivery Simple Face Mask Nasal Cannula Nasal Cannula Oxygen Flow Rate 10 4 3 07/11/23 16:00 07/11/23 16:15 07/11/23 16:55 Temperature Pulse Rate 99 100 103 H Respiratory Rate 15 10 L 14 Blood Pressure 153/93 H Pulse Oximetry 96 96 98 Oxygen Delivery Nasal Cannula Nasal Cannula Nasal Cannula Oxygen Flow Rate 2 2 2 07/11/23 16:45 07/11/23 17:00 07/11/23 17:30 Temperature 97.2 F L 97.3 F L 98.3 F Pulse Rate 97 103 H 102 H Respiratory Rate 18 18 18 Blood Pressure 146/86 H 150/85 H 145/91 H Pulse Oximetry 98 98 98 Oxygen Delivery Oxygen Flow Rate 07/11/23 18:30 07/11/23 19:30 07/11/23 20:00 Temperature 97.7 F 98.9 F 98.9 F Pulse Rate 81 94 94 Respiratory Rate 18 20 20 Blood Pressure 134/93 H 131/89 131/89 Pulse Oximetry 97 94 94 Oxygen Delivery Oxygen Flow Rate 07/12/23 03:30 Temperature 98.0 F Pulse Rate 86 Respiratory Rate 20 Blood Pressure 119/70 Pulse Oximetry 94 Oxygen Delivery Oxygen Flow Rate Intake/Output Intake/Output: Intake & Output 07/09/23 07/10/23 07/11/23 07/12/23 23:59 23:59 23:59 23:59 Intake Total 1720 340 Output Total 375 220 Balance 1345 120 Meds/Results Medications: Active Medications Generic Name Dose Route Start Last Admin Trade Name Freq PRN Reason Stop Dose Admin Hydrocodone Bitart/Acetaminophen 1 tab 07/11/23 16:30 07/11/23 20:23 Hydrocodone/Acetaminophen (*Crx) 5-325 Mg Tablet PO 1 tab Q4H PRN Administration Mild Pain (1-3) Hydrocodone Bitart/Acetaminophen 1 tab 07/11/23 16:30 07/12/23 07:01 Hydrocodone/Acetaminophen (*Crx) 10-325 Mg Tablet PO 1 tab Q4H PRN Administration Moderate Pain (4-6) Al Hydrox/Mg Hydrox/Simethicone 20 ml 07/11/23 16:30 Mag Hydrox/Al Hydrox/Simeth 30 Ml Udc PO Q4H PRN Indigestion/Heartburn Bisacodyl 10 mg 07/11/23 16:30 Bisacodyl 10 Mg Suppository RECTAL DAILY PRN Constipation Cyclobenzaprine HCl 10 mg 07/11/23 16:30 07/11/23 20:23 Cyclobenzaprine Hcl 10 Mg Tablet PO 10 mg TID PRN Administration Muscle Spasms Docusate Sodium 100 mg 07/11/23 21:00 07/11/23 20:16 Docusate Sodium 100 Mg Capsule PO 100 mg Q12HR PASQUALE Administration Finasteride 5 mg 07/11/23 17:00 07/11/23 19:00 Finasteride 5 Mg Tablet PO 5 mg DAILY PASQUALE Administration Cefazolin Sodium 1 gm in 50 mls @ 100 mls/hr 07/11/23 20:00 07/12/23 03:20 Ancef 1 Gm/Ns 50 Ml IVPB 100 mls/hr Q8H PASQUALE Administration Potassium Chloride/Dextrose/Sod C
[2023-07-12] MEDS: FINASTERIDE 5 MG TABLET PO (09:29)
[2023-07-12] MEDS: DOCUSATE SODIUM 100 MG CAPSULE PO (09:29)
[2023-07-12] MEDS: CYCLOBENZAPRINE HCL 10 MG TABLET PO ×2 (09:46→14:13)
--- NOTE | 2023-07-12 10:21 | WPDANESPN ---
Anes - Prog Note Post-Op Date/Time: 07/12/23 10:21 Cardiovascular status: normal Respiratory status: normal Airway patency: baseline Mental status: baseline Post-Op hydration status: normal Vital Signs: Last Vital Signs Temp 36.8 C 07/12/23 09:03 Pulse 91 07/12/23 09:03 Resp 18 07/12/23 09:03 BP 123/67 07/12/23 09:03 Pulse Ox 94 07/12/23 09:03 O2 Del Method Nasal Cannula 07/11/23 16:55 O2 Flow Rate 2 07/11/23 16:55 Pain Score (VAS): 0 I/O: Intake & Output 07/11/23 07/12/23 07/12/23 23:59 07:59 15:59 Intake Total 570 340 480 Output Total 375 220 300 Balance 195 120 180 Post-procedural complaints: none Patient Feedback: Patient satisfied with anesthetic care.
[2023-07-12] MEDS: PANTOPRAZOLE 40 MG TABLET PO (11:56)
== END 2023-07-12 16:45 | disposition home or self-care (01) ==
LOC: ANHSURGERY 09:14 → ANH2MED 16:35
PROVIDERS: PCP Family Medicine; Visit Provider Neurological Surgery
PROC: (CPT 22612; principal; 2023-07-11 11:30)
DX: M48.062 Spinal stenosis, lumbar region with neurogenic claudication (principal); D17.1 Benign lipomatous neoplasm of skin and subcutaneous tissue of trunk; E11.9 Type 2 diabetes mellitus without complications; I10 Essential (primary) hypertension; E78.5 Hyperlipidemia, unspecified; G47.33 Obstructive sleep apnea (adult) (pediatric); K21.9 Gastro-esophageal reflux disease without esophagitis; Z79.84 Long term (current) use of oral hypoglycemic drugs; E66.9 Obesity, unspecified; Z68.34 Body mass index [BMI] 34.0-34.9, adult
CPT/HCPCS: 63267; 63047; 36415; 82948; 85730; 97116; 97161; 99199; A9270; J0330; J0690; J1100; J1170; J2250; J2405; J2704; J3010; J3480; J7120

== ENCOUNTER 2023-08-30 09:54 | Outpatient (RCR) | payer OTHER, SELFPAY ==
--- NOTE | 2023-08-30 10:55 | OPREHPOC ---
Outpatient Therapy Plan of Care This is a Multidisciplinary Plan of Care that may contain components documented by all disciplines (PT, OT, and ST.) PT Problem 1 PT Problem #1 Knowledge Deficit PT Goal 1 Goal The patient will demonstrate independence with a home exercise program to continue after discharge from formal skilled PT. Target Visit 4 PT Problem 2 PT Problem #2 Pain PT Goal 1 Goal The patient will report no greater than 2/10 low back pain with ADLs. Target Visit 12 PT Problem 3 PT Problem #3 Impaired Functional Mobil PT Goal 1 Goal The patient will demonstrate less than 10% functional deficits per the oswestry. The patient will ambulate without antalgia or hip drop of the L hip. The patient will complete 800ft or more ambulation in 6 minutes. Target Visit 12 PT Problem 4 PT Problem #4 Impaired Strength PT Goal 1 Goal Core strength to improve to hold PPT and TA contraction to hip flexion under 20 degrees from table. Bilateral hip strength to improve to 4+/5 or better. bilateral PF strength to perform 10 SL heel raises with minimal to no UE assist. Target Visit 12
--- NOTE | 2023-08-30 10:55 | PTOPEVAL1 ---
Assessment and note entered by JT File, PT Evaluation Information Assessment Status Evaluation Diagnosis spinal stenosis, s/p lumbar decompression, lumbar laminectomy Onset 07/11/23 Subjective Information patient report she feels 100% better since surgery. he reports he continues to have weakness in the LE's. especially the L LE. he reports he would like to get back to bowling. he reports he needs to be able to slide with the L LE and push off with the R LE. he reports the bilateral hips are weak, but worse on the L. he reports the L knee is weak. he reports he is unable to perform a heel raise with the L LE only. he reports he does have pain across the lower back. he reports he feel much better walking. Reported Pain Level Pain Score 3: Self Report Pain Score 0: Self Report Assessment PT Clinical Summary mr. askew is a 63 yo male who presents to skilled PT services for evaluation and treatment of LE weakness and lumbar pain following lumbar laminectomy. he presents this date with deficits in core strength, lumbar mobility, LE strength, and gait mechanics. he would benefit from continued skilled PT to address his objective/ functional defictis and return to his prior level functional activities and quality of life. Plan of Care Interventions Electrical Stimulation,Gait Training,Hot Pack/Cold Pack,Manual Therapy,Mechanical Traction,Neuro Re- education,Patient/Caregiver Educati,Therapeutic Activities,Therapeutic Exercise PT Services Indicated Yes Treatment Frequency and 2x weekly for 8 visits Duration These treatments will address the objective and functional deficits as defined above. The patient will be advanced safely and appropriately in order for the patient to progress towards his/her prior level of function. Additional exercises will be introduced and as well as a comprehensive home exercise program upon discharge, if needed, ?to ensure carryover of functional gains achieved in the clinic. This treatment plan has been reviewed and agreement upon by the patient.
--- NOTE | 2023-09-21 13:37 | OPREHPOC ---
Outpatient Therapy Plan of Care This is a Multidisciplinary Plan of Care that may contain components documented by all disciplines (PT, OT, and ST.) PT Problem 1 PT Problem #1 Knowledge Deficit PT Goal 1 Goal The patient will demonstrate independence with a home exercise program to continue after discharge from formal skilled PT. Target Visit 4 Progress Met PT Problem 2 PT Problem #2 Pain PT Goal 1 Goal The patient will report no greater than 2/10 low back pain with ADLs. Target Visit 12 Progress Met PT Problem 3 PT Problem #3 Impaired Functional Mobil PT Goal 1 Goal The patient will demonstrate less than 10% functional deficits per the oswestry. The patient will ambulate without antalgia or hip drop of the L hip. The patient will complete 800ft or more ambulation in 6 minutes. met Target Visit 12 Progress Partially Met PT Problem 4 PT Problem #4 Impaired Strength PT Goal 1 Goal Core strength to improve to hold PPT and TA contraction to hip flexion under 20 degrees from table. met Bilateral hip strength to improve to 4+/5 or better. bilateral PF strength to perform 10 SL heel raises with minimal to no UE assist. Target Visit 12 Progress Partially Met
--- NOTE | 2023-09-21 13:37 | PTOPDC ---
Assessment and note entered by JT File, PT Evaluation Information Assessment Status Discharge Diagnosis spinal stenosis, s/p lumbar decompression, lumbar laminectomy Onset 07/11/23 Subjective Information patient reports he feels Good this date. he reports the doctor has released him to work, and he is allowed to return to bowling. he reports he has no pain in the lower back, but at times will have some tightness in the R lower back muscles from increased walking time. he reports he returns to the MD again tomorrow for follow up, and will return to work within the next week or 2. Reported Pain Level Pain Score 0: Self Report Assessment PT Clinical Summary mr. askew presents to skilled PT today for his 8th skilled therapy visit. he presents today with improved hip strength, improved ambulation endurance and gait speed, and no pain. he has met about 50% of goals for skilled PT as of this date. he continues to ambulat with antalgia, and display hip weakness. however, given the extent of nerve compression he had, and the length of time these nerves were compressed this may take an extended amount of time to improve. as of this date, he has been cleared to return to all recreational activities and work. he will be DC'd from skilled PT, and continue HEP independent at home. Plan of Care PT Services Indicated Yes
== END 2023-09-21 17:29 | disposition home or self-care (01) ==
LOC: CHSPT 09:54
PROVIDERS: Visit Provider Neurological Surgery
DX: Z48.89 Encounter for other specified surgical aftercare (principal); M48.061 Spinal stenosis, lumbar region without neurogenic claudication
CPT/HCPCS: 97014; 97110; 97161; 97530; G0283

== ENCOUNTER 2023-10-11 14:12 | Outpatient (CLI) | payer OTHER, SELFPAY ==
--- NOTE | ~2023-10-11 | XR_ITS ---
XR hip LT 2V w AP pelvis 10/11/2023 14:39 Indication: Left hip pain Procedure: 3 views left hip including AP pelvis Comparison: 03/23/2022 Findings: There is mild osteoarthritis of the hips. No fracture or traumatic malalignment. Pelvic rin gs are intact. No significant soft tissue abnormality. There is lower lumbar spondylosis. Impression: 1: Mild bilateral osteoarthritis of the hips. Reviewed, dictated and finalized at location B. OUSE WORKER Impression: 1: Mild bilateral osteoarthritis of the hips.
== END 2023-10-11 14:13 | disposition home or self-care (01) ==
LOC: CHSIMG 14:14
PROVIDERS: PCP Family Medicine; Visit Provider Family Medicine
DX: M16.0 Bilateral primary osteoarthritis of hip (principal); M25.552 Pain in left hip
CPT/HCPCS: 73502

== ENCOUNTER 2023-11-02 12:40 | Outpatient (CLI) | payer OTHER, SELFPAY ==
--- NOTE | ~2023-11-02 | XR_ITS ---
Left Knee Technique: AP, lateral, and sunrise views were obtained. Clinical History: Pain Findings: No fracture or dislocation is seen. Osseous alignment is anatomic. There is minimal patella r spurring. Soft tissues are unremarkable. No joint effusion is seen. Impression: Minimal patellar spurring. Reviewed, dictated and finalized at location . E LEADER Impression: Minimal patellar spurring.
--- NOTE | ~2023-11-02 | XR_ITS ---
Left ankle Technique: AP, oblique, and lateral views were obtained. Clinical History: Polyarthritis Findings: No acute fracture or dislocation is seen. Osseous alignment is anatomic. Ankle mortise and other visualized joint spaces are preserved. Soft tissues are otherwise unremarkable. Impression: Unremarkable left ankle. Reviewed, dictated and finalized at [facility]. GAGE LENDER Impression: Unremarkable left ankle.
== END 2023-11-02 12:41 | disposition home or self-care (01) ==
LOC: CHSIMG 12:42
PROVIDERS: PCP Family Medicine; Visit Provider Family Medicine
DX: M13.0 Polyarthritis, unspecified (principal); M76.52 Patellar tendinitis, left knee
CPT/HCPCS: 73562; 73610

== ENCOUNTER 2023-11-27 10:53 | Outpatient (CLI) | payer OTHER, SELFPAY ==
--- NOTE | ~2023-11-27 | XR_ITS ---
XR lumbar spine 2-3V DATE: 11/27/2023 11:13 INDICATION: Surgery follow-up from June: AP, lateral, coned lateral lumbosacral views COMPARISON: February 20, 2023 and lumbar spine and CT lumbar spine FINDINGS: There is mid lumbar laminectomy since February 20, 2023. There is grade 1 anterolisthesis at L 2-3, L3-4 and L4-5 due to degenerative change at the apophyseal joints. There is moderate degenerative disc disease at L2-3, L3-4, L4-5 and severe degenerative disease at L5 -S1. No fracture or bone destruction is evident. L4 limbus vertebra. IMPRESSION: Moderate to moderately severe lumbar spondylosis Status post lumbar laminectomy since February 20, 2023 Reviewed, dictated and finalized at location B. NISTRATIVE PROFESSIONAL
== END 2023-11-27 10:54 | disposition home or self-care (01) ==
LOC: CHSIMG 10:56
PROVIDERS: PCP Family Medicine; Visit Provider Physician Assistant
DX: M48.061 Spinal stenosis, lumbar region without neurogenic claudication (principal); M43.06 Spondylolysis, lumbar region; Z98.1 Arthrodesis status
CPT/HCPCS: 72100

== ENCOUNTER 2024-01-18 09:01 | Outpatient (CLI) | payer OTHER, SELFPAY ==
--- NOTE | ~2024-01-18 | MR_ITS ---
MRI of the lumbar spine Clinical History: Back pain Technique: Axial T2-weighted images, and sagittal T1-weighted, T2-weighted, and T2 fat-sat images wer e acquired. COMPARISON: 02/18/2023 Findings: No acute fracture seen. 4 mm anterolisthesis of L3 over L4 present. No suspicious bone dionicio ow signal abnormality seen. Patient is undergone interval posterior decompression at L2 and L3. At L1-L2, there is no disc bulge or herniation. There is mild facet arthropathy. No central canal tahir nosis or neural foraminal narrowing. At L2-L3, there is moderate degenerative disc narrowing. There is disc bulge with severe facet arthro will. There is moderate central canal stenosis. There is moderate right neural foraminal narrowing, and mild left neural foraminal narrowing. At L3-L4, there is disc bulge with advanced facet arthropathy. There is posterior decompression. Ther e is probable minimal central canal stenosis. There is moderate right neural foraminal narrowing, and minimal left neural foraminal narrowing. At L4-L5, there is diffuse disc bulge and advanced facet arthropathy. No thompson central canal stenosis . Probable minimal bilateral neural foraminal narrowing. At L5-S1, there is advanced degenerative disc narrowing. There is disc bulge with probable superimpos ed focal disc protrusion centrally. There is mild facet arthropathy. No thompson central canal stenosis. There is severe bilateral neural foraminal compromise. Paravertebral soft tissues are unremarkable, aside from expected postoperative change. Impression: Status post interval posterior decompression at L2 and L3. Stable 4 mm anterolisthesis of L3 over L4. Moderate degenerative spondylosis, as detailed above. Reviewed, dictated and final[place] [facility] OYEE WELLNESS/FITNESS COORDINATOR Impression: Status post interval posterior decompression at L2 and L3. Stable 4 mm anteroli sthesis of L3 over L4. Moderate degenerative spondylosis, as detailed above.
== END 2024-01-18 09:02 | disposition home or self-care (01) ==
PROVIDERS: PCP Family Medicine; Visit Provider Physician Assistant
DX: M43.06 Spondylolysis, lumbar region (principal); M54.50 Low back pain, unspecified; Z98.890 Other specified postprocedural states
CPT/HCPCS: 72148

== ENCOUNTER 2024-09-15 10:18 | Outpatient (CLI) | payer OTHER, SELFPAY ==
--- NOTE | ~2024-09-15 | XR_ITS ---
XR knee LT 3V DATE: 09/15/2024 10:55 INDICATION: Chronic left knee pain. No known injury. TECHNIQUE: 4 views COMPARISON: 11/02/2023 left knee FINDINGS: Chronic stable lateral peripatellar bony ossicles. Periarticular spurring of the patella. Medial lateral compartment joint spaces are well preserved. No radiopaque intra-articular loose body or chondrocalcinosis. No fracture, dislocation or joint effusion. No periosteal reaction or bone destruction. IMPRESSION: Patellofemoral osteoarthritis No fracture or dislocation or joint effusion No significant change since 11/02/2023 Reviewed, dictated and finalized at location A. E GAMES FLOOR SUPERVISOR
== END 2024-09-15 10:19 | disposition home or self-care (01) ==
PROVIDERS: PCP Family Medicine; Visit Provider Family Medicine
DX: M17.12 Unilateral primary osteoarthritis, left knee (principal); M25.562 Pain in left knee
CPT/HCPCS: 73562

== ENCOUNTER 2025-03-10 08:32 | Outpatient (CLI) | payer MEDICARE, SELFPAY ==
--- NOTE | ~2025-03-10 | MR_ITS ---
EXAMINATION: MR lumbar spine wo con DATE: 03/10/2025 10:03 INDICATION: Intervertebral disc degeneration TECHNIQUE: Magnetic resonance imaging (MRI) of the lumbar spine was performed without intravenous con trast. Sequences included sagittal T2-weighted FSE, sagittal T2-weighted FS FSE, sagittal T1-weighted FSE, and axial T2-weighted FSE. COMPARISON: None FINDINGS: 4 degree lumbar levocurvature. 2 mm anterolisthesis L3 on L4. Severe disc height loss at T11-T12 with degenerative endplate remodeling which contributes to minimal right anterior vertebral body height l oss at T12. Postoperative change of prior L2 and L3 laminectomies. Lumbar vertebral body heights are normal. There is additional severe disc height loss at L5-S1, moderate to severe right-sided predomin ant disc height loss at L2-L3 and moderate disc height loss at L3-L4 and L4-L5. There are mild fibrov ascular degenerative endplate changes at each of these levels, most prominent at L2-L3. Bone marrow s ignal is otherwise unremarkable. T12-L1 and L1-L2 disc spaces are normal. The conus medullaris termin ates at L1. There is normal signal in the caudal spinal cord. The following disc levels are specifica lly discussed: T12-L1: The disc does not extend beyond the endplate margin. There is mild bilateral facet joint oste oarthritis. There is no neural foraminal stenosis. There is no central canal stenosis. L1-L2: The disc does not extend beyond the endplate margin. There is moderate bilateral facet joint o steoarthritis. There is no neural foraminal stenosis. There is no central canal stenosis. L2-L3: Disc is bulging with superimposed annular fissure and central disc extrusion with disc materia l extending up to 6 mm cephalad to the level of the superior endplate of L2. There is severe bilatera l facet joint osteoarthritis. There is mild left and moderate right neural foraminal stenosis. There is mild to moderate central canal stenosis. L3-L4: Disc is bulging with superimposed annular fissure and central disc extrusion with disc materia l extending up to 6 mm cephalad to the level of the superior endplate of L3. There is severe bilatera l facet joint osteoarthritis. There is right and mild to moderate left neural foraminal stenosis. The re is posterior decompression with mild central canal stenosis. L4-L5: Disc is bulging with annular fissure. There is severe bilateral facet joint osteoarthritis. Th ere is moderate bilateral neural foraminal stenosis. There is mild central canal stenosis. L5-S1: Disc is bulging with superimposed annular fissure and right paracentral disc extrusion with di sc material extending up to 1.4 cm cephalad to the level of the superior endplate of L5. There is mil d bilateral facet joint osteoarthritis. There is severe bilateral neural foraminal stenosis. There is mild central canal stenosis. IMPRESSION: 1. Severe lumbar spondylosis most notable for severe neural foraminal stenosis bilaterally at L5-S1 a nd mild to moderate central canal stenosis at L2-L3. Reviewed, dictated and finalized at location B. IMPRESSION: 1. Severe lumbar spondylosis most notable for severe neural foraminal stenosis bilaterally at L5-S1 and mild to moderate central canal stenosis at L2-L3.
--- NOTE | ~2025-03-10 | XR_ITS ---
3 VIEWS LUMBAR SPINE Ordering provider: Darryl Mike MD History: . M51.369 - Other intervertebral disc degeneration, lumbar ... . Comparison: None. FINDINGS: VERTEBRAL BODIES:Minimal anterolisthesis at the level of L3-4. No visible fracture or subluxation. P ostoperative changes at the level of L3. DISK SPACES: Narrowing of the disc L2-L3, L3-L4, L4-L5 and L5-S1. Multilevel facet joint disease. SOFT TISSUES: Atherosclerotic changes of the aorta. IMPRESSION: No acute osseous abnormality lumbar spine. Multilevel degenerative disc disease. Reviewed, dictated and finalized at location A.
--- NOTE | ~2025-03-10 | XR_ITS ---
EXAMINATION: XR scoliosis survey DATE: 03/10/2025 09:29 INDICATION: Lumbar scoliosis. Other intervertebral disc degeneration. TECHNIQUE: Standing AP and lateral views of the entire spine were each obtained on 3 overlapping cran ial to caudal images. COMPARISON: Lumbar spine radiographs dated 11/27/2023 FINDINGS: Interval development of 20 degree lumbar levoscoliosis. There is 7 degrees compensatory dextrocurvatu re throughout the thoracic spine. The plumbline from the epicenter of C7 lies 6.5 cm to the right of the epicenter of S1. There is rightward tilt of the shoulders with the apex of the left coracoid proc ess lying 2.6 cm cephalad to the right. Minimal leftward pelvic tilt with the apex of the right femor al head 5 mm cephalad to the left. There is been corresponding progression of lumbar spondylosis with now severe right-sided disc height loss at L2-L3. See separate lumbar spine MRI also from 03/10/2025 for further detail. Again seen are L2 and L3 laminectomies. 3 mm anterolisthesis L3 on L4. Severe cer vical and moderate thoracic spondylosis. Calcified nodule at the left lung base consistent with old g ranulomatous disease. Borderline heart size accounting for AP technique. Normal bowel gas pattern. IMPRESSION: 1. Interval progression of now severe lumbar spondylosis with new 20 degree lumbar levoscoliosis. See separate lumbar spine MRI report for further detail with level by level analysis. Reviewed, dictated and finalized at location B. IMPRESSION: 1. Interval progression of now severe lumbar spondylosis with new 20 degree lum bar levoscoliosis. See separate lumbar spine MRI report for further detail with level by level analysis.
--- OUTSIDE RECORDS SUMMARY | 2025-03-10 08:56 | XMS_ITS | Clinical Summary ---
Author Organization [facility] [id number] [facility] Address [address] [place] [address] Care Team Providers Care Supervisor Fusing Room Name Role Phone Moshe Ramsey MD Primary Care Provider [phone] Allergies No known active allergies Medications lisinopril (PRINIVIL) 40 mg tablet Take 40 mg by mouth daily. 3 09/17/2018 Active atorvastatin (LIPITOR) 40 mg tablet Take 40 mg by mouth daily. 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 Other spondylosis with radiculopathy, lumbar reg ion 09/19/2018 Spinal stenosis, lumbar simone on, without neurogenic claudication 09/19/2018 Postlaminectomy syndrome, cervical region 2017 Spondylolisthesis of lumbar region 09/19/2018 Family History Relation Name Status Comments Father Mother Alive Social History Tobacco Use Types Packs/Day Years Used Date Smoking Tobacco: Never Alcohol Use Standard Drinks/Week Comments Yes 0 (1 standard drink = 0.6 oz pur e alcohol) Sex and Gender Information Value Date Recorded Sex Assigned at Not on file Legal Sex Male 1:43 AM CDT Gender Identity Not on file Sexual Orientation Not on file 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 Not on file Not on file Not on file Not on file Not on file Not on file Not on file Last Filed Vital Signs Vital Sign Reading Time Taken Comments Blood Pressure 160/90 10/15/2018 4:00 PM CHEF'S ASSISTANT Pulse - - Temperature - - Respiratory Rate - - Oxygen Saturation - - Inhaled Oxygen Concentration - - Weight 111.1 kg (245 lb) 10/15/2018 4:00 PM CHEF'S ASSISTANT Height - - Body Mass Index - - Plan of Treatment Health Maintenance Due Date Last Done Comments DTAP/TDAP/TD VACCINES (1 - Tdap) 1978 COLORECTAL SCREENING 02/24/2004 Colorectal Cancer Screening 02/24/2004 FIT-DNA Q 3 years 02/24/2004 FIT/FOBT Q 1 year 02/24/2004 Flex Sig/CT Colonography Q 5 years 02/24/2004 PNEUMOCOCCAL VACCINE 50+ YEARS (1 of 1 - PCV) 02/24/20 09 ZOSTER VACCINE (1 of 2) 2009 INFLUENZA VACCINE (#1) 2024 RSV VACCINE (60+ or ) (1 - 1-dose 75+ series) 2034 Insurance Care Teams Supervisor Fusing Room Relationship Specialty Start Date End Date Moshe Ramsey MD [facility] [place] [address] PCP - General Family Practice 09/14/18
--- OUTSIDE RECORDS SUMMARY | 2025-03-10 08:56 | XMS_ITS | Clinical Summary ---
Author Organization [facility] Address [facility] [place] [address] Care Team Providers Care Rag Washer Name Role Phone Goyo Ha DO Primary Care Provider [phone] Active Problems Problem Noted Date Diagnosed Date Bilateral low back pain with bilateral sciatica 11/27/2024 Encounters Date Type Department Care Team Description 02/12/2025 6:48 AM CDT - 02/12/2025 11:59 PM CDT Hospital Encounter [facility] [address] [place] [phone] Anthony Lilly, Darryl Grijalva MD Back Pain; Leg Pain Discharge Disposition: Home or Self Care (Routine Discharge) 02/12/2025 Travel 02/06/2025 6:52 AM CDT - 02/06/2025 11:59 PM CDT Hospital Encounter [facility] [address] [place] [phone] Anthony Lilly PT Fong, Brendan Manuel, MD Back Pain; Leg Pain Discharge Disposition: Home or Self Care (Routine Discharge) 02/06/2025 Travel 02/03/2025 6:53 AM CDT - 02/03/2025 11:59 PM CDT Hospital Encounter [facility] [address] [place] [phone] Anthony Lilly PT Fong, Brendan Manuel, MD Kovarik, Ryan A, PTA Back Pain Discharge Disposition: Home or Self Care (Routine Discharge) 02/03/2025 Travel 01/29/2025 6:48 AM CDT - 01/29/2025 11:59 PM CDT Hospital Encounter [facility] [address] [place] [phone] Anthony Lilly, Darryl Grijalva MD Kovarik, Ryan A, LOG DATA TECHNICIAN Back Pain Discharge Disposition: Home or Self Care (Routine Discharge) 01/29/2025 Travel 01/27/2025 6:53 AM CDT - 01/27/2025 11:59 PM CDT [facility] [address] [place] [phone] Anthony Lilly, Darryl Grijalva MD Kovarik, Ryan A, LOG DATA TECHNICIAN Back Pain Discharge Disposition: Home or Self Care (Routine Discharge) 01/27/2025 Travel 01/20/2025 7:43 AM CDT - 01/20/2025 11:59 PM CDT [facility] [address] [place] [phone] Anthony Lilly, Darryl Grijalva MD Kovarik, Ryan A, LOG DATA TECHNICIAN Back Pain Discharge Disposition: Home or Self Care (Routine Discharge) 01/20/2025 Travel 01/15/2025 8:23 AM BORING INSPECTOR - 01/15/2025 11:59 PM BORING INSPECTOR Hospital [facility] [address] [place] [phone] Anthony Lilly, Darryl Grijalva MD Back Pain; Lumbar Radiculopathy; Knee Pain Discharge Disposition: Home or Self Care (Routine Discharge) 01/15/2025 Travel 01/13/2025 7:35 AM BORING INSPECTOR - 01/13/2025 11:59 PM BORING INSPECTOR Hospital [facility] [address] [place] [phone] Anthony Lilly, Darryl Grijalva MD Bodner, Katie A, LOG DATA TECHNICIAN Lumbar Pain Discharge Disposition: Home or Self Care (Routine Discharge) 01/13/2025 Travel 01/09/2025 8:18 AM BORING INSPECTOR - 01/09/2025 11:59 PM BORING INSPECTOR Hospital En[facility] [address] [place] [phone] Anthony Lilly, Darryl Grijalva MD Low Back Pain; Leg Pain Discharge Disposition: Home or Self Care (Routine Discharge) 01/09/2025 Travel 01/06/2025 7:51 AM BORING INSPECTOR - 01/06/2025 11:59 PM BORING INSPECTOR Hospital En[facility] [address] [place] [phone] Anthony Lilly, Darryl Grijalva MD Bodner, Katie A, LOG DATA TECHNICIAN Lumbar Pain Discharge Disposition: Home or Self Care (Routine Discharge) 01/06/2025 Travel 12/31/2024 8:42 AM BORING INSPECTOR - 12/31/2024 11:59 PM BORING INSPECTOR Hospital Encounter [facility] [address] [place] [phone] Anthony Lilly, Darryl Grijalva MD Back Pain Discharge Disposition: Home or Self Care (Routine Discharge) 12/31/2024 Travel 12/26/2024 6:55 AM BORING INSPECTOR - 12/26/2024 11:59 PM BORING INSPECTOR [facility] [address] [place] [id number] Anthony Lilly, Darryl Grijalva MD Back Pain Discharge Disposition: Home or Self Care (Routine Discharge) 12/26/2024 Travel 12/23/2024 9:08 AM BORING INSPECTOR - 12/23/2024 11:59 PM BORING INSPECTOR [facility] [address] [place] [phone] Anthony Lilly, Darryl Grijalva MD Bodner, Katie A, LOG DATA TECHNICIAN Lumbar Pain Discharge Disposition: Home or Self Care (Routine Discharge) 12/23/2024 Travel 12/19/2024 7:40 AM BORING INSPECTOR - 12/19/2024 11:59 PM BORING INSPECTOR [facility] [address] [place] [phone] Anthony Lilly, PT Back Pain Discharge Disposition: Home or Self Care (Routine Discharge) 12/19/2024 Travel 12/16/2024 9:15 AM BORING INSPECTOR - 12/16/2024 11:59 PM BORING INSPECTOR Hospital Encounter [facility] [address] [place] [address] Anthony Lilly, PT Yessica Sanchez, LOG DATA TECHNICIAN Back Pain Discharge Disposition: Home or Self Care (Routine Discharge) 12/16/2024 Travel 12/13/2024 7:41 AM BORING INSPECTOR - 12/13/2024 11:59 PM BORING INSPECTOR Hospital Encounter [facility] [address] [place] [phone] Anthony Lilly, PT Back Pain Discharge Disposition: Home or Self Care (Routine Discharge) 12/13/2024 Travel 12/10/2024 7:36 AM BORING INSPECTOR - 12/10/2024 11:59 PM BORING INSPECTOR Hospital Encounter [facility] [address] [place] [phone] Anthony Lilly, PT Back Pain Discharge Disposition: Home or Self Care (Routine Discharge) 12/10/2024 Travel from Last 3 Months Social History Tobacco Use Types Packs/Day Years Used Date Smoking Tobacco: Never Assessed Sex and Gender Information Value Date Recorded Sex Assigned at Male 11/27/2024 7:08 AM BORING INSPECTOR Legal Sex Male 5:57 PM BORING INSPECTOR Gender Identity Not on file Sexual Orientation Not on file Plan of Treatment Health Maintenance Due Date Last Done Comments Colorectal Cancer Screening Colonoscopy (10 Years) 1959 Hepatitis C 1977 DTaP, Tdap and Td Vaccines ( 1 - Tdap) 1978 Pneumococcal Vaccine: 50+ Ye ars (1 of 1 - PCV) 2009 Zoster Vaccines (1 of 2) 2009 Annual Medicare Wellness Visit 02/24/2024 COVID-19 Vaccine ( - 2023-2 5 season) 2024 RSV Immunization or 60+ Years (1 - 1-dose 75+ series) 2034 Meningococcal B Vaccine Aged Out No l onger eligible based on patient's age to complete this topic Meningococcal Vaccine Aged Out No satya lois eligible based on patient's age to complete this topic RSV Immunizations Under 20 Months Aged Out No longer eligible based on patient's age to complete this topic Insurance MEDICARE [employer] Care Teams Rag Washer Relationship Specialty Start Date End Date Goyo Ha DO [address] [place] [address] PCP - General FAMILY PRACTICE 11/22/24
--- OUTSIDE RECORDS SUMMARY | 2025-03-10 08:56 | XMS_ITS | Clinical Summary ---
Author Organization [facility] [address] [place] [id number] Care Team Providers Care Wreath Inspector Name Role Phone Moshe Ramsey MD Primary Care Provider [phone] Allergies No known active allergies Medications lisinopril (PRINIVIL,ZESTR [place]) 40 mg tablet Take 40 mg by mouth daily. 3 04/28/2017 Active omeprazole (PriLOSEC) 20 mg capsule Take 20 mg by mouth daily Active celecoxib (CeleBREX) 200 mg capsuleIndicati ons:Other chronic pain Take 1 capsule (200 mg total) by mouth daily 90 capsule 08/29/2022 Active Active Problems No known active problems Surgical History Surgery Date Site/Laterality Comments BACK SURGERY 11/13/2014 - 11/12/2015 CARPAL TUNNEL RELEASE 11/13/2013 - 11/12/2014 Right Medical History Medical History Date Comments Hypertension Back pain Acute pain of right shoulder Family History Medical History Relation Name Comments Stroke Father Alzheimer's disease Mother Relation Name Status Comments Father Mother Alive Social History Tobacco Use Types Packs/Day Years Used Date Smoking Tobacco: Never Smokeless Tobacco: Never Tobacco Cessation:Counseling Given: Not Answered AUDIT-C Answer Date Recorded Q1: How often do you have a drink containing alc ohol? 2-4 times a month 08/29/2022 Q2: How many drinks containi ng alcohol do you have on a typical day when you are drinking? 3 or 4 08/29/2022 Q3: How often do you have si x or more drinks on one occasion? Less than monthly 08/29/2022 Sex and Gender Information Value Date Recorded Sex Assigned at Not on file Legal Sex Male 1:20 PM CDT Gender Identity Not on file Sexual Orientation Not on file Obstetrics History Last Filed Vital Signs Vital Sign Reading Time Taken Comments Blood Pressure 153/74 08/29/2022 10:00 AM CDT Pulse 79 08/29/2022 10:00 AM CDT Temperature 36.5 C (97.7 F) 08/29/2022 10:00 AM CDT Respiratory Rate 16 08/29/2022 10:00 AM CDT Oxygen Saturation 9% 08/29/2022 10:00 AM CDT Inhaled Oxygen Concentration - - Weight 107 kg (236 lb) 08/29/2022 10:00 AM CDT Height 167.6 cm (5' 6 ) 08/29/2022 10:00 AM CDT Body Mass Index 38.09 08/29/2022 10:00 AM CDT Plan of Treatment Health Maintenance Due Date Last Done Comments Colon Cancer Screening-Colonoscopy 1959 Depression Screening 1959 Fall Risk Assessment 1959 Hepatitis C Screening 1959 Prostate Cancer Screening-PSA 1959 DTaP/Tdap/Td Vaccine (1 - Tdap) 1970 Hepatitis B Screening 1977 Pneumococcal vaccine 65+ (1 of 1 - PCV) 2009 Zoster Vaccine (1 of 2) 2009 Abdominal Aortic Aneurysm (AAA) Screen 02/24/2024 Well Visit 65+ 02/24/2024 Influenza Vaccine (#1) 2024 Goals Goal Patient Goal Type Associated Problems Recent Progress Patient-Stated? Author CCM Chronic Pain Care Plan Chronic Care Management Worsening( 10:03 AM CDT) Samira Alex, RN Note: Problem: Chronic Pain Goals: 1. Minimize further functional decline 2. Maximize quality of life 3. Control pain Strategies: - Activity/exercise program recommendation - Conservative stepwise pain medicine strategy with multi-disciplinary approach - Recommend healthy lifestyle strategies and compensatory methods as needed Insurance [facility]/PPO Address: [address] [facility] H[facility]/PPO Address: [address] [address] [address] [id number] Care Teams Wreath Inspector Relationship Specialty Start Date End Date Moshe Ramsey MD [address] [place] [id number] PCP - General 07/07/22
--- OUTSIDE RECORDS SUMMARY | 2025-03-10 08:56 | XMS_ITS | Encounter Summary ---
Author Organization [facility] Address [address] [place] [address] Care Team Providers Care Timber Hand Name Role Phone Moshe Ramsey MD Primary Care Provider [phone] Reason for Visit * Reason Onset Date Comments Wants Appointment 06/18/2020 Encounter Details Date Type Department Care Team (Late st Contact Info) Description 06/18/2020 Telephone [facility] - [id number] [facility] [address] [facility] [address] [place] [address] [place] [address] [facility] [address] [place] [address] Wants Appointment Social History Tobacco Use Types Packs/Day Years [...] file Not on file Not on file documented as of this encounter Miscellaneous Notes * Telephone Encounter - Maria Isabel Fang RN - 06/18/2020 2:28 PM CDT Please review patient's images documented in this encounter Plan of Treatment Not on file documented as of this encounter Visit Diagnoses Not on filedocumented in this encounter Care Teams Timber Hand Relationship Specialty Start Date End Date Moshe Ramsey MD [facility] [place] [address] PCP - General Family Practice 09/14/18 documented as of this encounter
--- OUTSIDE RECORDS SUMMARY | 2025-03-10 08:56 | XMS_ITS | Continuity of Care Document ---
Author Organization [facility] Address [address] [facility] [address] [place] [address] Phone Care Team Providers Care Cloth Mercerizer Operator Name Role Phone Rodrigo Lilly MD Unavailable Unavailable Allergies, Adverse Reactions, Alerts Substance Reaction Status Criticality No Known Allergies Active No Inform ation Medications Medication Instructions Dosage Effective Dates (start - stop) Status Comments Medrol (Salvador) 4 mg tablets in a dose pack take as directed on inside label - Active Tylenol-Codeine #3 300 mg-30 mg tablet take 1 tablet by oral route every 6 hours as needed - Active omeprazole 20 mg capsule,delayed release take 1 capsule by oral route every day 30 minutes to 1 hour before a meal 20 MG - Active atorvastatin 40 mg tablet take 1 tablet by oral route every day 40 MG - Active lisinopril 40 mg tablet take 1 tablet by oral route every day 40 MG - Active diclofenac sodium 50 mg tablet,delayed release take 1 tablet by oral route 2 times every day 50 MG - Active tramadol 50 mg tablet take 1 tablet by o ral route every 8 hours as needed 50 MG - Active Procedures Procedure Date OFFICE/OUTPATIENT VISIT EST OFFICE/OUTPATIENT VISIT NEW Advance Directives Directive Yes / No Effective Date File Name No Information Encounters Encounter Description Practice Location Reason(s) For Visit Diagnoses Date Provider Providers Copied on Encounter [facility], [address], [place], [address], [place] tel:[phone] [facility] No Information 8 Vijaya Wallace. [address] [place], [place], [id number]. tel:[phone] OFFICE/OUTPA TIENT VISIT [facility], [address], [address], tel:[phone] [facility]u [facility] (chief complaint) Spinal stenosis of lumbar region without neurogenic claudicationAc [place] left-sided low back pain with left-sided sciaticaAcute bilateral low back pain with right-sided sciaticaSpondy lolisthesis of lumbar region 8 Vijaya Wallace. [address], [place], [id number]. tel:[phone] OFFICE/OUTPA TIENT VISIT [facility], [address], [address], tel:[phone] [facility] eval low back (chief complaint) Elevated blood-pressure reading, w/o diagnosis of htnBody mass index (BMI) 39.0-39.9, adultOther intervertebral disc degeneration, lumbar regionAcute bilateral low back pain with right-sided sciaticaAcute left-sided low back pain with left-sided sciaticaSpinal stenosis of lumbar region without neurogenic claudication 8 Vijaya Wallace. [address], [place], [id number]. tel:[phone] Family History Family Member Type Diagnosis Age At Onset Daughter Problem (finding) Alive and well Payers Payer name Insurance type Covered alliance party ID Authoriza tion(s) No Information Social History Type Description Quantity Date Captured Comments Alcohol Use Details Unknown Caffeine Use Details Unknown Tobacco Use Status No Information Smoking Status No Information Sex Male Chief Complaint And Reason For Visit No Information Reason For Referral Reason For Referral No Information History Of Present Illness Encounter Date Complaint History Of Prese nt Illness f/u back eval low back Functional Status Date Functional Assessmen t No Information Instructions Date Instruction Additional Infor mation Activity as tolerated. Related t o Acute left-sided low back pain with left-sided sciatica Avoid prolonged bed rest. Relate d to Acute left-sided low back pain with left-sided sciatica Take medication as prescribed. R elated to Acute left-sided low back pain with left-sided sciatica Activity as tolerated. Related t o Acute bilateral low back pain with right-sided sciatica Avoid prolonged bed rest. Relate d to Acute bilateral low back pain with right-sided sciatica Take medication as prescribed. R elated to Acute bilateral low back pain with right-sided sciatica Hypertension education Related t o Elevated blood-pressure reading without diagnosis of hypertension Giving encouragement to exercise Related to Body mass index (BMI) 39.0-39.9, adult Assessments Type Assessment Date No Information Patient Care Teams Name Effective Dates (start - stop) Status Members No Information
--- OUTSIDE RECORDS SUMMARY | 2025-03-10 08:56 | XMS_ITS | Referral Summary ---
Author Organization [facility] [address] [place] [id number] Care Team Providers Care Auto Glass Technician Name Role Phone Moshe Ramsey MD Primary Care Provider [phone] Allergies No known active allergies Medications lisinopril (PRINIVIL,ZESTR IL) 40 mg tablet Take 40 mg by mouth daily. 3 04/28/2017 Active omeprazole (PriLOSEC) 20 mg capsule Take 20 mg by mouth daily Active celecoxib (CeleBREX) 200 mg capsuleIndicati ons:Other chronic pain Take 1 capsule (200 mg total) by mouth daily 90 capsule 08/29/2022 Active Active Problems No known active problems Social History Tobacco Use Types Packs/Day Years [...] on file Sexual Orientation Not on file Last Filed Vital Signs [...] 08/29/2022 10:00 AM CDT Plan of Treatment Not on file Goals Goal Patient Goal Type Associated Problems [...] strategies and compensatory methods as needed Insurance [facility]/PPO Address[facility] [address] [place] [address] [facility] HMO/PPO Address: [address] [address] Care Teams Auto Glass Technician Relationship Specialty Start Date End Date Moshe Ramsey MD [address] [place] [id number] PCP - General 07/07/22
== END 2025-03-10 08:33 | disposition home or self-care (01) ==
PROVIDERS: PCP Family Medicine; Visit Provider Neurological Surgery
DX: M51.369 Other intervertebral disc degeneration, lumbar region without mention of lumbar back pain or lower extremity pain (principal); M47.896 Other spondylosis, lumbar region
CPT/HCPCS: 72082; 72110; 72148